=== PATIENT | female | born 1965 | race Two or more races ===

== ENCOUNTER 2019-07-02 01:11 | Inpatient (IN) | payer MEDICARE, MEDICAID ==
[~2019-07-02] VITALS: Ht 170.2 cm; Wt 98.0 kg
--- NOTE | 2019-07-02 01:20 | NUR ---
PT [id number] FROM FRIENDS HOME FOR ALTERED MENTAL STATUS. RESPONDS TO PAINFUL STIMULI. PT ATE DINNER AND SLEPT AT 8PM AND FRIEND NOTICED HEAVY BREATHING. PT LETHARGIC, CONNECTED TO THE WEIGH MACHINE OPERATOR AND POX
--- NOTE | 2019-07-02 01:22 | NUR ---
DR HERNANDEZ AT BEDSIDE
[2019-07-02] MEDS ORDERED: IV NS 0.9% 500 ML BAG IV ONE (02:00)
--- NOTE | 2019-07-02 02:05 | NUR ---
PT TAKEN TO CT
--- NOTE | 2019-07-02 02:15 | NUR ---
PT BACK FROM CT
[2019-07-02 02:27] LABS: BASOPHILS % (AUTO) 0.3 % (0.0-2.0); EOSINOPHILS % (AUTO) 2.2 % (0.0-6.0); HEMATOCRIT 36 % (33-45); HEMOGLOBIN 11.9 g/dL (11.5-14.8); LYMPHOCYTES # (AUTO) 1.6 /CMM (0.8-4.8); LYMPHOCYTES % (AUTO) 14.7 % (20.0-44.0); MEAN CORPUSCULAR HGB CONC 33 g/dl (31.0-36.0); MEAN CORPUSCULAR VOLUME 91 fL (82-100); MONOCYTES # (AUTO) 0.8 /CMM (0.1-1.30); MONOCYTES % (AUTO) 6.9 % (2.0-12.0); NEUTROPHILS # (AUTO) 8.4 /CMM (1.8-8.9); NEUTROPHILS % (AUTO) 75.9 % (43.0-81.0); PLATELET COUNT (AUTO) 194 /CMM (150-450); WHITE BLOOD COUNT (AUTO) 11.1 K/uL (4.3-11.0)
--- NOTE | 2019-07-02 02:33 | NUR ---
URINE COLLECTED AND SENT TO LAB
--- NOTE | 2019-07-02 02:34 | NUR ---
DR HERNANDEZ AT BEDSIDE
[2019-07-02 02:38] LABS: SERUM AMMONIA 19 umol/L (11-32)
[2019-07-02 02:41] LABS: APPEARANCE,URINE CLEAR (CLEAR); BILIRUBIN,URINE NEGATIVE (NEGATIVE); BLOOD, URINE SMALL Ery/uL (NEGATIVE); COLOR,URINE YELLOW (YELLOW); KETONES,URINE NEGATIVE (NEGATIVE); LEUKOCYTE ESTERASE ,URINE NEGATIVE (NEGATIVE); NITRITE, URINE NEGATIVE (NEGATIVE); PROTEIN,URINE 30 mg/dl (NEGATIVE); UGLUCOSE NEGATIVE (NEGATIVE); UROBILINOGEN,URINE 0.2 EU/dL (0.2)
--- NOTE | 2019-07-02 02:48 | NUR ---
ARTI [phone] FRIEND
[2019-07-02 02:51] LABS: CALCIUM, SERUM 8.5 mg/dL (8.5-10.1); CARBON DIOXIDE 26 mmol/L (21-32); CHLORIDE 95 mmol/L (98-107); CREATININE 1.9 mg/dL (0.6-1.3); GLUCOSE 67 mg/dL (74-106); POTASSIUM 3.7 mmol/L (3.5-5.1); SODIUM SERUM 131 mmol/L (136-145); UREA NITROGEN, BLOOD 35 mg/dL (7-18)
[2019-07-02 02:56] LABS: BACTERIA,URINE Moderate /HPF (None Seen); RBC,URINE 21-50 /HPF (0-2); SQUAMOUS EPITHELIAL CELL,UR Few /HPF (None Seen)
[2019-07-02 02:59] LABS: ALANINE AMINOTRANSFERASE 47 U/L (12-78); ALBUMIN 3.3 g/dL (3.4-5.0); ALKALINE PHOSPHATASE 59 U/L (46-116); ASPARTATE AMINOTRANSFERASE 22 U/L (15-37); BILIRUBIN,DIRECT 0.1 mg/dL (0.0-0.2); BILIRUBIN,TOTAL 0.2 mg/dL (0.2-1.0); TOTAL PROTEIN, SERUM 6.8 g/dL (6.4-8.2)
[2019-07-02 03:00] LABS: ACETAMINOPHEN 0 ug/ml (10-30); ALCOHOL, BLOOD < 3 mg/dL (0-0); SALICYLATE 1.1 mg/dL (2.8-20.0)
[2019-07-02 03:22] LABS: THYROID STIMULATING HORMONE 3.376 uIU/mL (0.358-3.74)
--- NOTE | 2019-07-02 04:00 | NUR ---
RT CALLED FOR EVAL.
--- NOTE | 2019-07-02 04:30 | NUR ---
DR HERNANDEZ AT BEDSIDE
[2019-07-02 05:16] LABS: DIGOXIN 1.25 ng/mL (0.90-2.00)
[2019-07-02] MEDS ORDERED: IV NS 0.9% 1,000 ML IV PRN (05:35)
[2019-07-02] MEDS ORDERED: MAG HYDROX/AL HYDROX/SIMETH 30 ML UDC PO PRN (06:00)
[2019-07-02] MEDS ORDERED: MAGNESIUM HYDROXIDE 30 ML UDC PO PRN (06:00)
[2019-07-02] MEDS ORDERED: Z GUARD REMEDY 2 OZ OINT TP PRN (06:00)
[2019-07-02] MEDS ORDERED: ACETAMINOPHEN 650 MG/SUPP.RECT RC PRN (06:00)
[2019-07-02] MEDS ORDERED: ONDANSETRON HCL/PF 4 MG/2 ML VIAL IVP PRN (06:00)
[2019-07-02 06:12] LABS: ABG BASE EXCESS -5.4 mmol/L; ABG OXYGEN SATURATION 89.9 % (92.0-98.5); ABG PCO2 47.1 mmHg (35.0-45.0); ABG PH 7.276 (7.350-7.450); ABG PO2 59.7 mmHg (75.0-100.0); AaDO2 113.4 mmHg; COHb 0.7 % (0.5-1.5); MetHb 0.4 % (0.0-1.5); O2Hb 88.9 % (94.0-97.0); SITE, ABG Left Radial; VENT MODE, BG nasal cannula
--- NOTE | 2019-07-02 07:16 | NUR ---
REPORT GIVEN TO GERSON BRIGGS
--- NOTE | 2019-07-02 07:26 | NUR ---
ASSUME PT CARE. SLEEPING, ON MONITOR. ON SEIZURE PRECAUTION. STABLE VITALS.
[2019-07-02 08:00] VITALS: BP 142/91
--- NOTE | 2019-07-02 08:15 | NUR ---
ECHOMETER ENGINEER NOTE PATIENT ADMIT FROM ER BY HELEN. RESPONSIVE TO PAINFUL STIMULI AND DOES NOT FOLLOW COMMMANDS. PATIENT IS ATTEMPTING TO PULL AT TUBES AND STAND UP. IS VERY CONFUSED AND RN WILL REQUEST RESTRAIN FOR HER SAFETY. IV LFT UPPER CHEST WALL PERIPHERAL IV #18 PATENT AND FLUSHING. BED IN LOW POSITION AND ALL NEEDS MET AT THIS TIME. MEDICATION RECONCILIATON DONE AND MD AWARE PATIENT ON UNIT.
[2019-07-02] MEDS ORDERED: ONDA4TAB5 PO (09:19)
[2019-07-02] MEDS ORDERED: FOLI0.8T23 PO (09:19)
[2019-07-02] MEDS ORDERED: DULO60CA45 PO (09:19)
[2019-07-02] MEDS ORDERED: PANT40TA2 PO (09:19)
[2019-07-02] MEDS ORDERED: ATOR40TA PO (09:19)
[2019-07-02] MEDS ORDERED: SULF1TAB48 PO (09:19)
[2019-07-02] MEDS ORDERED: METO50TA7 PO (09:19)
[2019-07-02] MEDS ORDERED: APIX5TAB PO (09:19)
[2019-07-02] MEDS ORDERED: ISOS30TA6 PO (09:19)
[2019-07-02] MEDS ORDERED: GABA-534 PO (09:19)
[2019-07-02] MEDS ORDERED: PRED2.5T PO (09:19)
[2019-07-02] MEDS ORDERED: MECL-159 PO (09:19)
[2019-07-02] MEDS ORDERED: OLAN20TA3 PO (09:19)
[2019-07-02] MEDS ORDERED: DIGO125T PO (09:19)
[2019-07-02] MEDS ORDERED: CLOP75TA15 PO (09:19)
[2019-07-02] MEDS ORDERED: LEVE250T2 PO (09:19)
[2019-07-02] MEDS ORDERED: TACR1CAP PO (09:19)
[2019-07-02] MEDS ORDERED: DILT180C93 PO (09:19)
[2019-07-02] MEDS ORDERED: MYCO250C PO (09:19)
[2019-07-02] MEDS ORDERED: CALC-7 PO (09:19)
[2019-07-02] MEDS ORDERED: CEPH500C2 PO (09:19)
--- NOTE | 2019-07-02 13:30 | NUR ---
RN NOTE CONSULT RN SPOKE WITH PRIMARY MD REGARDING MEDICATION RECON AND PLAN OF CARE. MD WANTS PATIENT TO REMAIN NPO AND DO NOT ADMINISTER MEDICATION PO OR NG DUE TO ALTERED LEVEL OF CONSCIOUSNESS. WILL CONSULT WITH NEUROLOGY FOR HISTORY OF SEIZURE AND STATUS CHANGE. PATIENT PLACED ON RESTRAINTS FOR SAFETY VERY CONFUSED AND UNABLE TO BE SAFE PULLIING AT TUBES NEEDS OXYGEN AND IVS.
--- NOTE | 2019-07-02 14:51 | NUR ---
RN NOTE FAMILY / AT BEDSIDE. AWARE OF TREATMENT PLAN. COOPERATIVE AND IFORMED RN PATIENT ALSO HAS HISTORY OF LUPUS AND SCHIZOPRHENIA. WILL ADD TO ASSESSMENT
[2019-07-02 16:00] VITALS: BP_SYST 108; BP_SYST 155; BP_DIAS 40; BP_DIAS 80
[2019-07-02] MEDS: IV D5/0.45 NACL 1,000 ML IV PRN (16:46)
[2019-07-02] MEDS ORDERED: hydrALAZINE HCL IV 20 MG VIAL IV PRN (17:00)
[2019-07-02] MEDS ORDERED: ISOSORBIDE MONONITRATE (30MG) 30 MG TAB.SR.24H PO SCH (18:09)
[2019-07-02] MEDS: METOPROLOL SUCCINATE 50 MG TAB.SR.24H PO SCH (18:09)
[2019-07-02] MEDS: DIGOXIN 0.125 MG TABLET PO SCH (18:11)
[2019-07-02] MEDS: DILTIAZEM HCL CD 180 MG PO SCH (18:19)
[2019-07-02] MEDS: CLOPIDOGREL BISULFATE 75 MG TABLET PO SCH (18:19)
[2019-07-02] MEDS: APIXABAN 5 MG TABLET PO SCH (18:20)
[2019-07-02] MEDS: predniSONE 5 MG TABLET PO SCH (18:21)
[2019-07-02] MEDS: LEVETIRACETAM (250 MG) 250 MG TABLET PO SCH (18:24)
[2019-07-02] MEDS ORDERED: ONDANSETRON 4 MG TAB.RAPDIS PO PRN (18:30)
--- NOTE | 2019-07-02 18:33 | NUR ---
RN NOTE ALLERGIES PATIENT IS CONFUSED MOST OF THE TIME HOWEVER MORE ALERT THAN ADMISSION. RN ASKED PATIENT IF SHE HAD ALLEGIES. PATIENT VERBALIZEED IMDUR, COMPAZINE AND PROPOFAL.
--- NOTE | 2019-07-02 18:34 | NUR ---
RN NOTE NON ADMIN MEDS NO DIGOXIN LEVEL DRAWN FOR PATIENT AT THIS TIME. RN TO HOLD DIGOXIN UNTIL DIG LEVEL IS DRAWN. RN HELD METROPROLOL DUE TO SUDDEN CHANGE IN PATIENTS PRESSURE BACK TO NORMAL RANGE, DECREASED FROM 184 / 84 TO 124/84 HEART RATE 136. RN GAVE CARDIZEM PER MD ORDER .
[2019-07-02] MEDS ORDERED: LORAZEPAM INJ 2 MG/ML VIAL IV PRN (19:00)
--- NOTE | 2019-07-02 19:30 | NUR ---
RN OPENING RECEIVED PATIENT A/O X2. PATIENT WAS ABLE TO STATE HER NAME BUT UNABLE TO STATE WHERE SHE IS. PATIENT WAS ON 3L OF O2 WITH NO SIGN OF ANY SOB. PATIENT ON THE MONITOR SHOWS AFIB CONTROLLED. HAS A UPPER EST #18g IV ACCESS PATENT. ALL SAFETY PRECAUTIONS HAVE BEEN APPLIED. WILL CONTINUE TO MONITOR.
[2019-07-02 20:00] VITALS: BP 126/82
[2019-07-02] MEDS: TOPIRAMATE 25 MG TABLET PO SCH (20:53)
[2019-07-02] MEDS: TACROLIMUS ANHYDROUS 1 MG CAPSULE PO SCH (20:53)
[2019-07-02] MEDS: GABAPENTIN 300 MG CAPSULE PO SCH (23:11)
[2019-07-02] MEDS: ATORVASTATIN 40 MG TABLET PO SCH (23:11)
[2019-07-03] VITALS (15 sets, daily range): BP systolic 98–143; BP diastolic 57–86
[2019-07-03] MEDS ORDERED: DEXTROSE 50%-WATER 50 ML DISP.SYRIN IV PRN (00:30)
[2019-07-03] MEDS: PANTOPRAZOLE 40 MG TABLET.DR PO SCH (07:30)
--- NOTE | 2019-07-03 07:30 | NUR ---
RN INITIAL NOTE RECEIVED PATIENT FROM NOC SHIFT RN FOR VAL RN.
--- NOTE | 2019-07-03 07:56 | NUR ---
RN CLOSING PATIENT IN BED. ENDORSED TO RN SHIFT THAT PATIENT IS DIFFICULT TO AROUSE SINCE FIRST DYER. PATIENT ON MONITOR SHOWING AFIB CONTOLLED. BED ALARM ON. ENDORSED CARE TO NURSE FOR MURALI.
--- NOTE | 2019-07-03 08:00 | NUR ---
RN NOTE PATIENT IN BED, WAS ON DEEP SLEEP. NOC SHIFT RN CHECKED BS BEFORE SHIFT ENDS AT 164. PATIENT WAS VERY LETHARGIC. WAS GIVEN PAIN STIMULI, NO REACTION. SET UP A SUCTION MACHINE AT BEDSIDE, TRIED TO SUCTION PATIENT STARTED TO COUGH BUT GOES BACK TO SLEEP. ORDERED STAT ABG, RT AT BEDSIDE. PATIENT SATURATING 91% ON 2L NC. CN AT BEDSIDE. MD MADE AWARE, ORDERED TO TRANSFER PATIENT [facility] STATUS. WAITING FOR ABG RESULTS.
[2019-07-03 08:24] LABS: ABG BASE EXCESS -0.3 mmol/L; ABG OXYGEN SATURATION 88.8 % (92.0-98.5); ABG PCO2 52.8 mmHg (35.0-45.0); ABG PH 7.318 (7.350-7.450); ABG PO2 58.1 mmHg (75.0-100.0); AaDO2 79.2 mmHg; COHb 0.8 % (0.5-1.5); MetHb 0.3 % (0.0-1.5); O2Hb 87.8 % (94.0-97.0); SITE, ABG Right Brachial; VENT MODE, BG NASAL CANNULA
--- NOTE | 2019-07-03 08:30 | NUR ---
RN NOTE ABG RESULTED, PER MD ORDER BIPAP 27/07. RT AT BEDSIDE. PATIENT STILL ON DEEP SLEEP. WILL CONTINUE TO MONITOR PATIENT WILL BE UNDER MY CARE TODAY. AND BE TRANSFERRED TO GERSON YAN WHEN SHE COMES IN
--- NOTE | 2019-07-03 08:45 | NUR ---
0845 pt. placed into bipap per md order due to low pao2 and high pco2 on ABG's. bipap parameters below as order: ipap 15 epap 5 rate 12 fio2 50% Addendum: 07/03/19 at 0942 by ANURADHA LUGO RT Amended: Links added.
[2019-07-03] MEDS: APIXABAN 5 MG TABLET PO SCH ×2 (09:00→16:59)
[2019-07-03] MEDS: TOPIRAMATE 25 MG TABLET PO SCH ×2 (09:00→20:37)
[2019-07-03] MEDS: DILTIAZEM HCL CD 180 MG PO SCH (09:00)
[2019-07-03] MEDS: predniSONE 5 MG TABLET PO SCH (09:00)
[2019-07-03] MEDS: TACROLIMUS ANHYDROUS 1 MG CAPSULE PO SCH (09:00)
[2019-07-03] MEDS: DULOXETINE HCL 30 MG CAPSULE.DR PO SCH ×2 (09:00→16:59)
[2019-07-03] MEDS: CLOPIDOGREL BISULFATE 75 MG TABLET PO SCH (09:00)
[2019-07-03] MEDS: DIGOXIN 0.125 MG TABLET PO SCH (09:00)
[2019-07-03] MEDS: METOPROLOL SUCCINATE 50 MG TAB.SR.24H PO SCH (09:00)
[2019-07-03] MEDS: LEVETIRACETAM (250 MG) 250 MG TABLET PO SCH ×2 (09:00→20:36)
[2019-07-03] MEDS: BLOOD SUGAR DIAGNOSTIC 1 EACH STRIP VI SCH ×4 (09:30→22:32)
--- NOTE | 2019-07-03 09:30 | NUR ---
WOUND CARE CONSULT: UNABLE TO SEE PT FOR SKIN ASSESSMENT DUE TO PT UNSTABLE AT THIS TIME. PER ADMISSION PHOTO DOCUMENTATION, DEEP TISSUE INJURY NOTED IN PHOTO. RECOMMENDATIONS MADE FOR SKIN PROTECTION AND WOUND CARE BASED ON PHOTO/NURSING DOCUMENTATION. RECOMMEND FIRST STEP LOW AIRLOSS MATTRESS. DISCUSSED RECOMMENDATIONS WITH NURSING STAFF. CURRENT ROSA ELENA SCORE IS 12. MD IN AGREEMENT WITH PLAN OF CARE. Addendum: 07/03/19 at 0935 by KULDIP JUNG WNDNU CORRECTION: PT ON AUGUSTINE ISOFLEX LOW AIRLOSS BED. NO NEED FOR FIRST STEP OVERLAY AT THIS TIME.
--- NOTE | 2019-07-03 09:34 | NUR ---
RN NOTE ALL PO MEDS NOT GIVEN. PATIENT VERY LETHARGIC, ON BIPAP. WILL TRANSFER TO ICU PER DR MYRICK'S ORDER. INSULIN NOT GIVEN, PATIENT NOT EATING. BS AT 164. WOUND CARE NURSE AT BEDSIDE. ORDERED WOUND CARE PLAN. AND PATIENT IS ON ISOFLEX BED ALREADY.. WAITING FOR ICU BED
--- NOTE | 2019-07-03 10:30 | NUR ---
RN NOTE PATIENT WAS TRANSFERRED TO ICU VIA ACLS. ON HIGH FLOW O2 AND CONNECTED BACK TO BIPAP IN ICU. REPORT GIVEN TO GERSON JONES AT BEDSIDE.
[2019-07-03] MEDS: IV D5/0.45 NACL 1,000 ML IV PRN (10:32)
--- NOTE | 2019-07-03 10:45 | NUR ---
RN NOTES RECEIVED REPORT FROM SULEMAN NIETO FOR MURALI. RECEIVED PT IN BED WITH CONTINUOUS BIPAP. SHE IS CURRENTLY NON-RESPONSIVE TO VERBAL STIMULI BUT MOVES TO LOCALIZED PAIN. WILL CONTINUE TO MONITOR FOR ANY CHANGES.
[2019-07-03 10:50] LABS: ABG BASE EXCESS -0.6 mmol/L; ABG OXYGEN SATURATION 95.5 % (92.0-98.5); ABG PCO2 43.5 mmHg (35.0-45.0); ABG PH 7.373 (7.350-7.450); ABG PO2 83.9 mmHg (75.0-100.0); AaDO2 223.7 mmHg; COHb 0.5 % (0.5-1.5); MetHb 0.5 % (0.0-1.5); O2Hb 94.5 % (94.0-97.0); PEEP,BG 5 cm H2O; SITE, ABG Left Radial; VENT MODE, BG ST 15/5
--- NOTE | 2019-07-03 11:00 | NUR ---
RT RECEVIED PT ON BIPAP TRANSFER FROM [facility]. PT PLACED ON BIPAP DUE TO ALOC. ABG WAS OBTAINED AND RESULTS WERE WITHIN NORMAL LIMITS. RESULTS SHOWN TO RN AND AWARE. PT TOLERATING SETTINGS WELL. NO SOB OR RESP DISTRESS NOTED AT THIS TIME. WILL CONTINUE TO MONITOR.
[2019-07-03] MEDS: IPRATROPIUM NEB FS 0.5 MG/2.5 ML AMPUL.NEB NEB SCH ×4 (11:07→23:49)
[2019-07-03] MEDS: ALBUTEROL HALF STRENGTH 1.25 MG/3 ML VIAL.NEB NEB SCH ×4 (11:07→23:49)
[2019-07-03] MEDS: LEVOFLOXACIN 500 MG /D5W 100ML 500 MG in PREMIX 1 EA IV SCH (11:48)
--- NOTE | 2019-07-03 11:48 | NUR ---
SPOKE WITH DR. SOMMERS, PT IS NOW NPO
--- NOTE | 2019-07-03 11:52 | NUR ---
WOUND CARE: PT SEEN FOR SKIN ASSESSMENT AND NOTED TO HAVE INTACT DEEP TISSUE INJURY TO SACRUM PRESENT ON ADMISSION. RECOMMENDATIONS MADE FOR SKIN PROTECTION AND WOUND CARE. DISCUSSED WITH NURSING STAFF. PT ON [facility] AIR[facility] BED. WILL SEE PRN. GUERRERO IN AGREEMENT WITH PLAN OF CARE. Addendum: 07/03/19 at 1153 by KULDIP JUNG WNDNU Amended: Links added.
[2019-07-03 12:51] LABS: BASOPHILS % (AUTO) 0.3 % (0.0-2.0); HEMATOCRIT 34 % (33-45); HEMOGLOBIN 11.4 g/dL (11.5-14.8); LYMPHOCYTES # (AUTO) 1.7 /CMM (0.8-4.8); LYMPHOCYTES % (AUTO) 17.5 % (20.0-44.0); MEAN CORPUSCULAR HGB CONC 34 g/dl (31.0-36.0); MEAN CORPUSCULAR VOLUME 90 fL (82-100); MONOCYTES # (AUTO) 0.8 /CMM (0.1-1.30); MONOCYTES % (AUTO) 8.5 % (2.0-12.0); NEUTROPHILS # (AUTO) 6.5 /CMM (1.8-8.9); NEUTROPHILS % (AUTO) 67.7 % (43.0-81.0); PLATELET COUNT (AUTO) 170 /CMM (150-450); RED BLOOD CELL COUNT(AUTO) 3.77 MIL/uL (4.0-5.2); WHITE BLOOD COUNT (AUTO) 9.6 K/uL (4.3-11.0)
[2019-07-03 13:04] LABS: CREATININE 1.6 mg/dL (0.6-1.3); MAGNESIUM 1.8 mg/dL (1.8-2.4); PHOSPHORUS 3.1 mg/dL (2.5-4.9); POTASSIUM 3.9 mmol/L (3.5-5.1)
[2019-07-03 14:48] LABS: THYROID STIMULATING HORMONE 1.33 uIU/mL (0.358-3.74)
[2019-07-03] MEDS: *INSULIN REGULAR(HUMULIN R)HUM 100 UNIT/ML VIAL SQ PRN ×2 (18:02→22:37)
--- NOTE | 2019-07-03 18:03 | NUR ---
RN NOTES PT IS STILL UNRESPONSIVE TO VERBAL STIMULI. PT WAKES UP SLIGHTLY TO STERNAL RUB AND LIGHT PAIN BUT BECOMES UNRESPONSIVE SHORTLY AFTER. SHE IS TOLERATING BIPAP WELL. NO S.SX OF RESP DISTRESS OR SOB. VSS. 1700 MEDICATIONS UNABLE TO ADMIN DUE TO NPO DIAGNOSIS, WILL CONTINUE TO MONITOR FOR ANY CHANGES.
--- NOTE | 2019-07-03 19:14 | NUR ---
RN CLOSING NOTES PATIENT IS RESTING IN BED COMFORTABLY WITH CONTINUOUS BIPAP. SHE IS SLOWLY BECOMING MORE RESPONSIVE WHEN INTRODUCED TO LIGHT PAIN VIA STERNAL RUB. PT DID NOT REQUIRE THE USE OF SOFT WRIST RESTRAINTS, SHE FOLLOWS COMMANDS WHEN ALERT. CHEST RISES AND FALLS EVENLY. PT NEEDS HAVE BEEN MET, VITAL SIGNS ARE STABLE, NO ACUTE CHANGES OCCURRED THROUGHOUT THE SHIFT. SAFETY MEASURES HAVE BEEN IMPLEMENTED, CALL LIGHT IS WITHIN REACH, BED IS IN LOWEST AND LOCKED POSITION, SIDE RAILS UP X3, PT HAS BEEN ENDORSED TO NIGHTSHIFT RN FOR CONTINUITY OF CARE.
--- NOTE | 2019-07-03 20:00 | NUR ---
[employer] school agriculture teacher notes received pts in bed on bipap machine tolerating well sating 98-99%,afib with occasional pvc noted , no sob no distress noted ,v/s stable afebrile pts is awake more alert , no complain of pain . with left upper arm midline intact and patent , ivf of d5 1/2 ns at 75cc/hr infusing well, all needs attended too , call light with in reach , all needs attended too kept pts clean dry and comfortable.
[2019-07-03] MEDS: TACROLIMUS ANHYDROUS 0.5 MG CAPSULE PO SCH (20:37)
--- NOTE | 2019-07-03 20:45 | NUR ---
pts off biap at 845 pm ,pts is awake alert and verbally responsive pt verbalizing wanted to drink and eat she said she is so hungry .swallow screen done ,pts able to swallow water with out any difficulty.spoke to dr diez with [facility] for regular diet , order noted and carried out , pts offer sandwich able to tolerate with no difficulty , due meds given able to swallow pills .all needs attended too , spoke to her daughter updated with pts current condition.
[2019-07-03] MEDS: GABAPENTIN 300 MG CAPSULE PO SCH (21:01)
[2019-07-03] MEDS: ATORVASTATIN 40 MG TABLET PO SCH (21:01)
[2019-07-03] MEDS ORDERED: ACETAMINOPHEN 325 MG TABLET PO PRN (21:30)
--- NOTE | 2019-07-03 22:00 | NUR ---
agricultural inspector notes blood sugar for 10pm is 142mg/dl 2 units of regular insulin given per sliding scale, pts on po diet.
[2019-07-04] VITALS (16 sets, daily range): BP systolic 104–142; BP diastolic 56–94
[2019-07-04] MEDS: IV D5/0.45 NACL 1,000 ML IV PRN ×2 (01:29→19:57)
[2019-07-04] MEDS ORDERED: ACETAMINOPHEN 325 MG TABLET PO PRN (03:30)
[2019-07-04] MEDS: ALBUTEROL HALF STRENGTH 1.25 MG/3 ML VIAL.NEB NEB SCH ×6 (03:36→23:13)
[2019-07-04] MEDS: IPRATROPIUM NEB FS 0.5 MG/2.5 ML AMPUL.NEB NEB SCH ×6 (03:36→23:13)
[2019-07-04 04:40] LABS: BASOPHILS % (AUTO) 0.4 % (0.0-2.0); EOSINOPHILS % (AUTO) 8.1 % (0.0-6.0); HEMATOCRIT 34 % (33-45); HEMOGLOBIN 11.5 g/dL (11.5-14.8); LYMPHOCYTES # (AUTO) 2.1 /CMM (0.8-4.8); LYMPHOCYTES % (AUTO) 22.8 % (20.0-44.0); MEAN CORPUSCULAR HGB CONC 34 g/dl (31.0-36.0); MEAN CORPUSCULAR VOLUME 91 fL (82-100); MONOCYTES # (AUTO) 0.6 /CMM (0.1-1.30); MONOCYTES % (AUTO) 6.6 % (2.0-12.0); NEUTROPHILS # (AUTO) 5.7 /CMM (1.8-8.9); NEUTROPHILS % (AUTO) 62.1 % (43.0-81.0); PLATELET COUNT (AUTO) 154 /CMM (150-450); RED BLOOD CELL COUNT(AUTO) 3.73 MIL/uL (4.0-5.2); WHITE BLOOD COUNT (AUTO) 9.1 K/uL (4.3-11.0)
[2019-07-04 04:50] LABS: APPEARANCE,URINE CLEAR (CLEAR); BILIRUBIN,URINE NEGATIVE (NEGATIVE); BLOOD, URINE NEGATIVE Ery/uL (NEGATIVE); COLOR,URINE YELLOW (YELLOW); KETONES,URINE NEGATIVE (NEGATIVE); LEUKOCYTE ESTERASE ,URINE SMALL (NEGATIVE); NITRITE, URINE NEGATIVE (NEGATIVE); PROTEIN,URINE 30 mg/dl (NEGATIVE); UGLUCOSE NEGATIVE (NEGATIVE); UROBILINOGEN,URINE 0.2 EU/dL (0.2)
[2019-07-04 05:08] LABS: BACTERIA,URINE Few /HPF (None Seen); RBC,URINE 0-2 /HPF (0-2); SQUAMOUS EPITHELIAL CELL,UR Few /HPF (None Seen); WBC,URINE 51-80 /HPF (0-3)
[2019-07-04 05:10] LABS: THYROID STIMULATING HORMONE 2.032 uIU/mL (0.358-3.74)
[2019-07-04 05:18] LABS: CALCIUM, SERUM 7.9 mg/dL (8.5-10.1); CREATININE 1.5 mg/dL (0.6-1.3); MAGNESIUM 1.6 mg/dL (1.8-2.4); PHOSPHORUS 3.5 mg/dL (2.5-4.9); POTASSIUM 3.6 mmol/L (3.5-5.1)
[2019-07-04 05:37] LABS: EOSINOPHIL,URINE None Seen
[2019-07-04 06:11] LABS: CREATININE, URINE 47.2 MG/DL (30.0-125.0)
--- NOTE | 2019-07-04 06:28 | NUR ---
agricultural equipment salesperson notes. Pts remain on nc at 3litre awake alert x4 able to make needs known, no sob no distress noted,will endorse to rn day shift for continuity of care.
--- NOTE | 2019-07-04 07:00 | NUR ---
AUDIT MACHINE OPERATOR AM NOTE PATIENT ALERT AND ORIENTED X4. PLEASANT AND PARTICIPATING IN CARE. VITALS WNL CONTROLLED AFIB ON MONITOR. PATIENT IS ABLE TO USE BEDSIDE COMMODE AND HAD ONE LARGE FORMED BOWL MOVEMENT. IV PATENT AND INTACT FLUIDS RUNNING. LABS IMPROVED, MENTAL STATUS IMPROVED FROM ADMISSION. AWAITING NEURO CONSULT AND SWALLOW EVAL. RN ASSESS SWALLOW ABILITY, CAN TOLERATE PILLS LIUIDS AND SOLID FOODS BY HERSELF. NO RISK FOR ASPIRATION.
[2019-07-04] MEDS: CLOPIDOGREL BISULFATE 75 MG TABLET PO SCH (08:00)
[2019-07-04] MEDS: DULOXETINE HCL 30 MG CAPSULE.DR PO SCH ×2 (08:01→17:07)
[2019-07-04] MEDS: METOPROLOL SUCCINATE 50 MG TAB.SR.24H PO SCH (08:01)
[2019-07-04] MEDS: TACROLIMUS ANHYDROUS 0.5 MG CAPSULE PO SCH ×2 (08:01→21:32)
[2019-07-04] MEDS: predniSONE 5 MG TABLET PO SCH (08:01)
[2019-07-04] MEDS: TOPIRAMATE 25 MG TABLET PO SCH ×2 (08:02→21:32)
[2019-07-04] MEDS: DILTIAZEM HCL CD 180 MG PO SCH (08:02)
[2019-07-04] MEDS: APIXABAN 5 MG TABLET PO SCH ×2 (08:05→17:09)
[2019-07-04 08:08] LABS: COMPLEMENT C3, SERUM 117 mg/dL (82-167); COMPLEMENT C4, SERUM 38 mg/dL (14-44)
[2019-07-04] MEDS: BLOOD SUGAR DIAGNOSTIC 1 EACH STRIP VI SCH ×4 (08:20→21:40)
[2019-07-04] MEDS: PANTOPRAZOLE 40 MG TABLET.DR PO SCH (08:20)
[2019-07-04] MEDS: DIGOXIN 0.125 MG TABLET PO SCH (08:33)
[2019-07-04] MEDS: INSULIN REGULAR, HUMAN 100 UNIT/ML 3 ML VIAL SQ PRN ×3 (08:35→18:11)
[2019-07-04 09:07] LABS: *ANA ANTI-CENTROMERE B AB <0.2 AI (0.0-0.9); *ANA ANTI-DNA(DS) AB, QN 1 IU/mL (0-9); *ANA ANTI-JO-1 <0.2 AI (0.0-0.9); *ANA ANTICHROMATIN ANTIBODY <0.2 AI (0.0-0.9); *ANA RNP ANTIBODIES 0.6 AI (0.0-0.9); *ANA SJOGREN'S ANTI-SS-A <0.2 AI (0.0-0.9); *ANA SJOGREN'S ANTI-SS-B <0.2 AI (0.0-0.9); *ANAANTI-SCLERODERMA-70 AB <0.2 AI (0.0-0.9); *ANASMITH AB <0.2 AI (0.0-0.9)
[2019-07-04] MEDS ORDERED: Magnesium 1GM/D5W 100ML PREMIX 100 ML IV SCH (09:25)
[2019-07-04 09:59] LABS: ABG OXYGEN SATURATION 92.4 % (92.0-98.5); ABG PCO2 40.2 mmHg (35.0-45.0); ABG PH 7.406 (7.350-7.450); ABG PO2 63.8 mmHg (75.0-100.0); AaDO2 117.3 mmHg; COHb 0.3 % (0.5-1.5); MetHb 0.3 % (0.0-1.5); O2Hb 91.8 % (94.0-97.0); SITE, ABG Right Radial; VENT MODE, BG NASAL CANNULA
[2019-07-04] MEDS: LEVETIRACETAM (250 MG) 250 MG TABLET PO SCH ×2 (10:48→21:32)
--- NOTE | 2019-07-04 11:40 | NUR ---
ICU TRANSFER TO [facility] RN TRANSFERED PATIENT TO [facility], REPORT GIVEN TO RAJEEV AT BEDSIDE. PATIENT AWAKE AND ALERT X4. EATING WELL. IVS PATENT ABLE TO AMBULATE WITH ASSIST USE BEDSIDE COMMODE. VITALS WNL OXYGEN SATURATION ABOVE 95%. NO SEIXURES NOTED
[2019-07-04] MEDS: LEVOFLOXACIN 500 MG /D5W 100ML 500 MG in PREMIX 1 EA IV SCH (12:19)
[2019-07-04] MEDS: HYDROCODONE/APAP 5/325MG 1 EACH TABLET PO PRN ×2 (13:56→19:58)
--- NOTE | 2019-07-04 19:18 | NUR ---
RN CLOSING NOTES PT DENIES ANY PAIN OR SOB AT PRESENT MOMENT. PT IS A&OX4. PT IS AFIB CONTROLLED ON TELE MONITOR. BED IS LOCKED AND IN LOWEST POSITION WITH CALL LIGHT IN REACH. PT IS ABLE TO AMBULATE TO RESTROOM. PT IS ABLE TO MAKE NEEDS KNOWN. REPORT GIVEN TO MAIL HANDLER RN FOR MURALI.
[2019-07-04] MEDS: GABAPENTIN 300 MG CAPSULE PO SCH (21:32)
[2019-07-04] MEDS: ATORVASTATIN 40 MG TABLET PO SCH (21:32)
[2019-07-04] MEDS: *INSULIN REGULAR(HUMULIN R)HUM 100 UNIT/ML VIAL SQ PRN (21:40)
[2019-07-05] VITALS: BP 111/63
[2019-07-05] MEDS: IPRATROPIUM NEB FS 0.5 MG/2.5 ML AMPUL.NEB NEB SCH ×4 (03:20→15:24)
[2019-07-05] MEDS: ALBUTEROL HALF STRENGTH 1.25 MG/3 ML VIAL.NEB NEB SCH ×4 (03:20→15:23)
[2019-07-05 04:00] VITALS: BP 124/65
--- NOTE | 2019-07-05 07:10 | NUR ---
RN INITIAL NOTE PATIENT AWAKE AND ALERT X4. ON TELE MONITOR, WITH CONTROLLED AFIB AT 82. PATIENT IS AMBULATORY AND HAS BRP. HAS A LEFT UPPER ARM MIDLINE WITH D5 HALF NS AT 75 ML/HR. NO COMPLAINS OF ANY PAIN NOR SOB AT THIS TIME. BED LOCKED AND IN LOWEST POSITION. CALL LIGHT WITHIN REACH. WILL CONTINUE TO MONITOR
[2019-07-05] MEDS: PANTOPRAZOLE 40 MG TABLET.DR PO SCH (07:44)
[2019-07-05] MEDS: INSULIN REGULAR, HUMAN 100 UNIT/ML 3 ML VIAL SQ PRN ×3 (07:47→18:04)
[2019-07-05] MEDS: BLOOD SUGAR DIAGNOSTIC 1 EACH STRIP VI SCH ×2 (07:47→12:07)
[2019-07-05 08:00] VITALS: BP 136/78
[2019-07-05 08:01] LABS: BASOPHILS % (AUTO) 0.3 % (0.0-2.0); EOSINOPHILS % (AUTO) 8.5 % (0.0-6.0); HEMATOCRIT 31 % (33-45); HEMOGLOBIN 10.4 g/dL (11.5-14.8); LYMPHOCYTES # (AUTO) 1.6 /CMM (0.8-4.8); LYMPHOCYTES % (AUTO) 23.5 % (20.0-44.0); MEAN CORPUSCULAR HGB CONC 33 g/dl (31.0-36.0); MEAN CORPUSCULAR VOLUME 90 fL (82-100); MONOCYTES # (AUTO) 0.4 /CMM (0.1-1.30); MONOCYTES % (AUTO) 5.5 % (2.0-12.0); NEUTROPHILS # (AUTO) 4.3 /CMM (1.8-8.9); NEUTROPHILS % (AUTO) 62.2 % (43.0-81.0); PLATELET COUNT (AUTO) 179 /CMM (150-450); RED BLOOD CELL COUNT(AUTO) 3.46 MIL/uL (4.0-5.2); WHITE BLOOD COUNT (AUTO) 6.8 K/uL (4.3-11.0)
[2019-07-05] MEDS: predniSONE 5 MG TABLET PO SCH (08:11)
[2019-07-05] MEDS: TACROLIMUS ANHYDROUS 0.5 MG CAPSULE PO SCH (08:14)
[2019-07-05] MEDS: DILTIAZEM HCL CD 180 MG PO SCH (08:14)
[2019-07-05] MEDS: CLOPIDOGREL BISULFATE 75 MG TABLET PO SCH (08:14)
[2019-07-05] MEDS: DULOXETINE HCL 30 MG CAPSULE.DR PO SCH ×2 (08:14→17:35)
[2019-07-05] MEDS: TOPIRAMATE 25 MG TABLET PO SCH (08:14)
[2019-07-05] MEDS: METOPROLOL SUCCINATE 50 MG TAB.SR.24H PO SCH (08:14)
[2019-07-05] MEDS: LEVETIRACETAM (250 MG) 250 MG TABLET PO SCH (08:15)
[2019-07-05] MEDS: DIGOXIN 0.125 MG TABLET PO SCH (08:15)
[2019-07-05] MEDS: APIXABAN 5 MG TABLET PO SCH ×2 (08:16→17:35)
[2019-07-05] MEDS: HYDROCODONE/APAP 5/325MG 1 EACH TABLET PO PRN (08:36)
[2019-07-05 08:59] LABS: CALCIUM, SERUM 8.1 mg/dL (8.5-10.1); CREATININE 1.4 mg/dL (0.6-1.3); MAGNESIUM 1.8 mg/dL (1.8-2.4); PHOSPHORUS 3.3 mg/dL (2.5-4.9); POTASSIUM 3.6 mmol/L (3.5-5.1)
[2019-07-05] MEDS: IV D5/0.45 NACL 1,000 ML IV PRN (09:31)
--- NOTE | 2019-07-05 11:00 | NUR ---
RN NOTE DR MYRICK AT BEDSIDE. ADVISED PATIENT TO AMBULATE AROUND THE HALLWAY AND TRY NOT TO DEPEND ON O2
[2019-07-05 12:00] VITALS: BP 115/69
[2019-07-05] MEDS: LEVOFLOXACIN 500 MG /D5W 100ML 500 MG in PREMIX 1 EA IV SCH (12:08)
--- NOTE | 2019-07-05 13:30 | NUR ---
RN NOTE PATIENT AMBULATED, ON ROOM AIR. O2 SAT AT 96%
[2019-07-05] MEDS ORDERED: Blood Sugar Diagnostic VI (15:30)
[2019-07-05] MEDS ORDERED: INSU100V28 SQ (15:30)
[2019-07-05] MEDS ORDERED: LEVE250T2 PO (15:30)
[2019-07-05] MEDS ORDERED: LEVO500T2 PO (15:30)
--- NOTE | 2019-07-05 17:25 | NUR ---
RN NOTE REPORT GIVEN TO GERSON BEAL AT [facility]
--- NOTE | 2019-07-05 18:34 | NUR ---
STEREO PLOTTER OPERATOR NOTE PATIENT WAS PICKED UP BY [facility], GOING TO [facility]. NO COMPLAINS OF ANY PAIN NOR SOB. WAS OFF O2. NO SOB NOTED. SATURATING 97% ON RA. BELONGINGS LIST SIGNED. REMOVED IV LINES AND ID BANDS. TELE BOX REMOVED. WOUND PHOTOS TAKEN. PATIENT ALERT AND ORIENTED X4. FAMILY AWARE OF THE TRANSFER
[2019-07-05] MEDS ORDERED: LEVETIRACETAM (250 MG) 250 MG TABLET PO SCH (21:00)
[2019-07-06] MEDS ORDERED: LEVOFLOXACIN (500MG) 500 MG TABLET PO SCH (09:00)
[2019-07-17] MEDS ORDERED: FURO-144 PO (12:52)
== END 2019-07-05 18:30 | DRG 193 ==
LOC: ER 01:17 → TELE1 06:07 → TELE-TD 08:39 → MEDSG1 11:11 → TELE1 16:41 → TELE-TD 07-03 08:41 → ICU 07-03 10:16 → TELE-TD 07-04 11:43
PROC: 05HF33Z Insertion of Infusion Device into Left Cephalic Vein, Percutaneous Approach (ICD-10-PCS; principal; 2019-07-03)
PROC: 05HC33Z Insertion of Infusion Device into Left Basilic Vein, Percutaneous Approach (ICD-10-PCS; 2019-07-03)
PROC: 5A09357 Assistance with Respiratory Ventilation, Less than 24 Consecutive Hours, Continuous Positive Airway Pressure (ICD-10-PCS; 2019-07-03)
DX: J15.9 Unspecified bacterial pneumonia (principal); J96.22 Acute and chronic respiratory failure with hypercapnia; N17.0 Acute kidney failure with tubular necrosis; G93.41 Metabolic encephalopathy; E87.1 Hypo-osmolality and hyponatremia; T86.12 Kidney transplant failure; E11.22 Type 2 diabetes mellitus with diabetic chronic kidney disease; N18.9 Chronic kidney disease, unspecified; I25.10 Atherosclerotic heart disease of native coronary artery without angina pectoris; K21.9 Gastro-esophageal reflux disease without esophagitis; Y83.9 Surgical procedure, unspecified as the cause of abnormal reaction of the patient, or of later complication, without mention of misadventure at the time of the procedure; E66.01 Morbid (severe) obesity due to excess calories; Z68.33 Body mass index [BMI] 33.0-33.9, adult; I48.91 Unspecified atrial fibrillation; K76.0 Fatty (change of) liver, not elsewhere classified; M32.9 Systemic lupus erythematosus, unspecified; I12.9 Hypertensive chronic kidney disease with stage 1 through stage 4 chronic kidney disease, or unspecified chronic kidney disease
CPT/HCPCS: 36410; 36415; 36600; 70450-TC; 71045-TC; 71250-TC; 72125-TC; 76700-TC; 80048-TC; 80061-TC; 80076-TC; 80162-TC; 80177; 80197; 80305; 81000-TC; 82140-TC; 82550-TC; 82570-TC; 82803-TC; 82962-TC; 83735-TC; 84100-TC; 84155-TC; 84300-TC; 84443-TC; 84484-TC; 84702-TC; 85025-TC; 85652-TC; 85730-TC; 86225; 86235; 86706; 86803; 87081-TC; 87086-TC; 87340; 94799-TC; A4216; G0378; G0480; J0360; J1815; J1956; J3475; J3490; J7030; J7040; J7507; J7512; L0172; Q0162

== ENCOUNTER 2019-07-14 19:56 | Inpatient (IN) | payer MEDICARE, MEDICAID ==
[~2019-07-14] VITALS: Ht 170.2 cm; Wt 99.8 kg
[~2019-07-14 19:56] MED LIST: APIX5TAB PO; ATOR40TA PO; Blood Sugar Diagnostic VI; CALC-7 PO; CEPH500C2 PO; CLOP75TA15 PO; DIGO125T PO; DILT180C93 PO; DULO60CA45 PO; FOLI0.8T23 PO; GABA-534 PO; INSU100V28 SQ; ISOS30TA6 PO; LEVE250T2 PO; LEVO500T2 PO; MECL-159 PO; METO50TA7 PO; MYCO250C PO; OLAN20TA3 PO; ONDA4TAB5 PO; PANT40TA2 PO; PRED2.5T PO; SULF1TAB48 PO; TACR1CAP PO
--- NOTE | 2019-07-14 19:56 | NUR ---
C/O SOB, COUGH AND CONGESTION X3 DAYS. O2 SAT 93%ON 4L/NC, pt to bed 5, pt on monitor, vss, nad noted, pending md dial
--- NOTE | 2019-07-14 20:13 | NUR ---
CALLED RT FOR ABG
[2019-07-14 20:27] LABS: BASOPHILS # (AUTO) 0.1 /CMM (0.0-0.2); BASOPHILS % (AUTO) 0.9 % (0.0-2.0); EOSINOPHILS % (AUTO) 7.6 % (0.0-6.0); HEMATOCRIT 35 % (33-45); HEMOGLOBIN 11.5 g/dL (11.5-14.8); LYMPHOCYTES # (AUTO) 0.9 /CMM (0.8-4.8); LYMPHOCYTES % (AUTO) 12.9 % (20.0-44.0); MEAN CORPUSCULAR HGB CONC 33 g/dl (31.0-36.0); MEAN CORPUSCULAR VOLUME 89 fL (82-100); MONOCYTES # (AUTO) 0.4 /CMM (0.1-1.30); MONOCYTES % (AUTO) 5.1 % (2.0-12.0); NEUTROPHILS # (AUTO) 5.3 /CMM (1.8-8.9); NEUTROPHILS % (AUTO) 73.5 % (43.0-81.0); PLATELET COUNT (AUTO) 239 /CMM (150-450); RED BLOOD CELL COUNT(AUTO) 3.91 MIL/uL (4.0-5.2); WHITE BLOOD COUNT (AUTO) 7.2 K/uL (4.3-11.0)
[2019-07-14 20:49] LABS: ABG BASE EXCESS -0.6 mmol/L; ABG OXYGEN SATURATION 92.1 % (92.0-98.5); ABG PCO2 42.7 mmHg (35.0-45.0); ABG PH 7.379 (7.350-7.450); ABG PO2 64.2 mmHg (75.0-100.0); COHb 0.4 % (0.5-1.5); MetHb 0.4 % (0.0-1.5); O2Hb 91.4 % (94.0-97.0); SITE, ABG Left Radial; VENT MODE, BG 4 LNC
[2019-07-14 20:51] LABS: ALANINE AMINOTRANSFERASE 24 U/L (12-78); ALBUMIN 2.8 g/dL (3.4-5.0); ALKALINE PHOSPHATASE 83 U/L (46-116); ASPARTATE AMINOTRANSFERASE 21 U/L (15-37); BILIRUBIN,DIRECT 0.1 mg/dL (0.0-0.2); BILIRUBIN,TOTAL 0.3 mg/dL (0.2-1.0); CALCIUM, SERUM 8.2 mg/dL (8.5-10.1); CARBON DIOXIDE 27 mmol/L (21-32); CHLORIDE 91 mmol/L (98-107); CREATININE 1.8 mg/dL (0.6-1.3); POTASSIUM 4.5 mmol/L (3.5-5.1); SODIUM SERUM 124 mmol/L (136-145); TOTAL PROTEIN, SERUM 6.6 g/dL (6.4-8.2); UREA NITROGEN, BLOOD 20 mg/dL (7-18)
[2019-07-14 20:56] LABS: GLUCOSE 395 mg/dL (74-106)
--- NOTE | 2019-07-14 21:02 | NUR ---
CALLED MISBAH FOR READ
[2019-07-14 21:07] LABS: APPEARANCE,URINE Clear (CLEAR); BILIRUBIN,URINE Negative (NEGATIVE); BLOOD, URINE Negative Ery/uL (NEGATIVE); COLOR,URINE Yellow (YELLOW); KETONES,URINE Negative (NEGATIVE); LEUKOCYTE ESTERASE ,URINE Trace (NEGATIVE); NITRITE, URINE Negative (NEGATIVE); PH,URINE 5.5 (5.0-8.0); PROTEIN,URINE 100 mg/dl (NEGATIVE); UGLUCOSE 500 MG/DL mg/dL (NEGATIVE); UROBILINOGEN,URINE 0.2 EU/dL (0.2)
[2019-07-14 21:40] LABS: BACTERIA,URINE 2+ /HPF (None Seen)
[2019-07-14] MEDS: INSULIN LISPRO/ASPART 100 UNIT/ML CARTRIDGE SQ SCH (21:47)
[2019-07-14] MEDS ORDERED: INSULIN REGULAR, HUMAN 100 UNIT/ML 10 ML VIAL ONE (21:48)
--- NOTE | 2019-07-14 21:54 | NUR ---
CALLED FOR TELE BED
--- NOTE | 2019-07-14 21:57 | NUR ---
RECIEVED BED 323-2 T
[2019-07-14] MEDS ORDERED: FUROSEMIDE 40 MG/4 ML VIAL IV ONE (22:00)
[2019-07-14] MEDS ORDERED: FUROSEMIDE 40 MG/4 ML VIAL ONE (22:08)
--- NOTE | 2019-07-14 22:16 | NUR ---
report given to jeronimo trevino for héctor pt will be transported to 3rd floor
[2019-07-14 22:20] VITALS: BP 127/84
--- NOTE | 2019-07-14 22:30 | NUR ---
pt transported to 3rd floor
[2019-07-14] MEDS ORDERED: ONDANSETRON HCL/PF 4 MG/2 ML VIAL IVP PRN (23:00)
[2019-07-14] MEDS ORDERED: ALBUTEROL FS 2.5 MG/3 ML VIAL.NEB NEB PRN (23:00)
[2019-07-14] MEDS ORDERED: DEXTROSE 50%-WATER 50 ML DISP.SYRIN IV PRN (23:00)
[2019-07-14] MEDS ORDERED: ACETAMINOPHEN 325 MG TABLET PO PRN (23:00)
[2019-07-15] VITALS (14 sets, daily range): BP systolic 99–150; BP diastolic 45–88
[2019-07-15] MEDS: MORPHINE SULFATE INJ 2 MG/ML DISP.SYRIN IV PRN ×4 (00:06→20:02)
--- NOTE | 2019-07-15 01:40 | NUR ---
ZOOLOGY TEACHERPLASTIC HOSPITAL PRODUCTS ASSEMBLER NOTES PATIENT RECEIVED ACCOMPANIED BY ER STAFF VIA [employer]. ON 4L OF O2 VIA NC, WITH BREATHING EVEN AND UNLABORED, NO SOB NOTED. A/O X 2-3 ABLE TO FOLLOW COMMANDS. TELE MONITORS PLACED. IV LOCATED ON R SHOULDER #20. ALL BELONGINGS ACCOUNTED FOR. ORIENTED TO ROOM AND STAFF. ID BAND PLACED. WILL CONTINUE TO MONITOR.
[2019-07-15] MEDS: BLOOD SUGAR DIAGNOSTIC 1 EACH STRIP IN SCH ×4 (06:47→21:35)
[2019-07-15] MEDS: INSULIN REGULAR, HUMAN 100 UNIT/ML 3 ML VIAL SQ PRN ×3 (06:52→17:28)
--- NOTE | 2019-07-15 06:59 | NUR ---
MS RN CLOSING NOTES PATIENT CURRENTLY RESTING IN BED A/O X2-3. ON 4L OF O2 VIA NC BREATHING EVEN AND UNLABORED, NO SOB NOTED. NO SIGNS OF ACUTE DISTRESS. NO COMPLAINTS OR PAIN OR DISCOMFORT. IV LOCATED ON R SHOULDER #20 SL. TELE SHOWING A FiB CONTROLLED 78.. PATIENT WAS KEPT CLEAN AND DRY THROUGHOUT THE NIGHT- ALL NEEDS ATTENDED TO. SAFETY PRECAUTION IN PLACE WITH BED IN LOWEST POSITION, CALL LIGHT WITHIN REACH, BREAKS ON, AND SIDE RAILS UP X 2. SEIZURE PRECAUTIONS IN PLACE WELL. WILL ENDORSE TO ONCOMING SHIFT ABOUT MURALI.
[2019-07-15] MEDS: INSULIN LISPRO/ASPART 100 UNIT/ML CARTRIDGE SQ SCH ×3 (07:30→17:27)
--- NOTE | 2019-07-15 07:55 | NUR ---
MS RN NOTES RECEIVED PATIENT IN BED A/O X 2. PATIENT ON OXYGEN THERAPY OF 4 LMP. NO SIGNS OF DISTRESS AT THIS MOMENT. PATIENT STATED ABOUT PAIN IN HER LEGS. PER TAX DIRECTOR NURSE SHE HAS PRN MORPHINE. RIGHT CHEST IV GAUGE #20 PRESENT AND INTACT FLUSHING WELL. SAFETY PRECAUTIONS IN PLACE; BED IN LOW POSITION AND LOCKED, RAILS UP X 2, CALL LIGHT WITHIN REACH. WILL CONTINUE TO MONITOR PATIENT.
[2019-07-15 08:20] LABS: BASOPHILS % (AUTO) 0.7 % (0.0-2.0); EOSINOPHILS % (AUTO) 9.7 % (0.0-6.0); HEMATOCRIT 37 % (33-45); HEMOGLOBIN 12.1 g/dL (11.5-14.8); LYMPHOCYTES # (AUTO) 1.4 /CMM (0.8-4.8); LYMPHOCYTES % (AUTO) 22.4 % (20.0-44.0); MEAN CORPUSCULAR HGB CONC 33 g/dl (31.0-36.0); MEAN CORPUSCULAR VOLUME 88 fL (82-100); MONOCYTES # (AUTO) 0.5 /CMM (0.1-1.30); MONOCYTES % (AUTO) 8.4 % (2.0-12.0); NEUTROPHILS # (AUTO) 3.6 /CMM (1.8-8.9); NEUTROPHILS % (AUTO) 58.8 % (43.0-81.0); PLATELET COUNT (AUTO) 238 /CMM (150-450); RED BLOOD CELL COUNT(AUTO) 4.18 MIL/uL (4.0-5.2); WHITE BLOOD COUNT (AUTO) 6.1 K/uL (4.3-11.0)
[2019-07-15 08:38] LABS: ALANINE AMINOTRANSFERASE 20 U/L (12-78); ALBUMIN 2.8 g/dL (3.4-5.0); ALKALINE PHOSPHATASE 76 U/L (46-116); ASPARTATE AMINOTRANSFERASE 16 U/L (15-37); BILIRUBIN,TOTAL 0.4 mg/dL (0.2-1.0); CALCIUM, SERUM 8.1 mg/dL (8.5-10.1); CARBON DIOXIDE 28 mmol/L (21-32); CHLORIDE 94 mmol/L (98-107); CREATININE 1.6 mg/dL (0.6-1.3); GLUCOSE 212 mg/dL (74-106); MAGNESIUM 1.3 mg/dL (1.8-2.4); PHOSPHORUS 3.5 mg/dL (2.5-4.9); POTASSIUM 3.8 mmol/L (3.5-5.1); SODIUM SERUM 129 mmol/L (136-145); TOTAL PROTEIN, SERUM 6.6 g/dL (6.4-8.2); UREA NITROGEN, BLOOD 16 mg/dL (7-18)
[2019-07-15 08:41] LABS: IRON, SERUM 27 ug/dl (50-175); TOTAL IRON BINDING CAPACITY 261 ug/dl (250-450)
--- NOTE | 2019-07-15 08:45 | NUR ---
MS RN NOTES PATIENT IS HARD TO AROUSE. SHE OPENS HER EYES AND GOES BACK TO SLEEP STATING SHE DID NOT SLEEP WELL AT NIGHT. SATURATING AT 96 PERCENT. SHE DID NOT EAT HER BREAKFAST YET. MD NOTIFIED AND SAW HER AT BEDSIDE.
[2019-07-15 08:52] LABS: CHOLESTEROL 79 mg/dL (<200); HDL CHOLESTEROL 29 mg/dL (40-60); LDL 33 mg/dL (0-99); THYROID STIMULATING HORMONE 4.807 uIU/mL (0.358-3.74); TRIGLYCERIDES 153 mg/dL (30-150)
[2019-07-15] MEDS ORDERED: FUROSEMIDE 20 MG/2 ML VIAL IV SCH (09:00)
[2019-07-15] MEDS ORDERED: LEVETIRACETAM (250 MG) 250 MG TABLET PO SCH (09:00)
[2019-07-15] MEDS ORDERED: FUROSEMIDE 40 MG/4 ML VIAL IV SCH (09:00)
[2019-07-15 09:58] LABS: DIGOXIN 1.48 ng/mL (0.90-2.00)
[2019-07-15] MEDS: predniSONE 5 MG TABLET PO SCH (10:25)
[2019-07-15] MEDS: LEVETIRACETAM (250 MG) 250 MG TABLET PO SCH ×2 (10:26→21:34)
[2019-07-15] MEDS: PANTOPRAZOLE 40 MG TABLET.DR PO SCH (10:26)
[2019-07-15] MEDS: TACROLIMUS ANHYDROUS 0.5 MG CAPSULE PO SCH ×2 (10:26→21:34)
[2019-07-15] MEDS: MYCOPHENOLATE MOFETIL 250 MG CAPSULE PO SCH ×2 (10:27→17:25)
[2019-07-15] MEDS: CALCIUM CARB 250MG /VITAMIN D 1 UDTAB PO SCH ×2 (10:27→17:25)
[2019-07-15] MEDS: DILTIAZEM HCL CD 180 MG PO SCH (10:27)
[2019-07-15] MEDS: VIT B CMPLX 3/FA/VIT C/BIOTIN 1 TAB TABLET PO SCH (10:27)
[2019-07-15] MEDS: CLOPIDOGREL BISULFATE 75 MG TABLET PO SCH (10:28)
[2019-07-15] MEDS: METOPROLOL SUCCINATE 50 MG TAB.SR.24H PO SCH (10:28)
[2019-07-15] MEDS: APIXABAN 5 MG TABLET PO SCH ×2 (10:29→17:27)
[2019-07-15] MEDS: CEFTRIAXONE 1 G in IV D5W 50 ML IV SCH (10:30)
[2019-07-15 10:37] LABS: ABG BASE EXCESS 3.1 mmol/L; ABG OXYGEN SATURATION 91.3 % (92.0-98.5); ABG PCO2 60.1 mmHg (35.0-45.0); ABG PH 7.323 (7.350-7.450); ABG PO2 64.4 mmHg (75.0-100.0); AaDO2 122.6 mmHg; COHb 0.4 % (0.5-1.5); MetHb 0.3 % (0.0-1.5); O2Hb 90.7 % (94.0-97.0); SITE, ABG Left Radial; VENT MODE, BG 4LNC
--- NOTE | 2019-07-15 10:46 | NUR ---
EDYTA done. Results given to Dr. Reilly.
[2019-07-15] MEDS: ISOSORBIDE MONONITRATE (30MG) 30 MG TAB.SR.24H PO SCH (11:02)
[2019-07-15] MEDS: DULOXETINE HCL 30 MG CAPSULE.DR PO SCH ×2 (11:03→17:25)
[2019-07-15] MEDS: DIGOXIN 0.125 MG TABLET PO SCH (11:04)
--- NOTE | 2019-07-15 11:20 | NUR ---
QUALITY ASSURANCE INSPECTOR INITIAL NOTE RECEIVED PATIENT VIA BED, RECEIVED BEDSIDE REPORT. WITH ONGOING ANTIBIOTIC INFUSION. NO DISTRESS NOTED, ON 4LPM O2 VIA NC, SPO2 95%. SKIN WARM AND DRY TO TOUCH. PATIENT AWAKE AND ALERT. C/O 10/10 BILATERAL LEG PAIN. STATES IT'S NOT NEW. NOTED WITH DELORIS 20G PIV PATENT AND INTACT. WITH C/O SOB WITH EXERTION. ORIENTED TO ROOM AND CALL LIGHT BUTTON. PATIENT VERBALIZED UNDERSTANDING. CALL LIGHT WITHIN EASY REACH. WILL CONTINUE TO MONITOR.
--- NOTE | 2019-07-15 11:35 | NUR ---
MS RN NOTES AGB TEST DONE. PER ABG RESULTS PATIENT TRANSFERRED TO ICU.
[2019-07-15] MEDS: Magnesium 1GM/D5W 100ML PREMIX 100 ML IV SCH ×2 (11:36→13:50)
--- NOTE | 2019-07-15 11:36 | NUR ---
MS RN NOTES PATIENT DID NOT HAVE ANY BREAKFAST ALL DAY. BS OF 205. FAST ACTING INSU;CHERELLE NON-ADMINISTERED UNTIL PATIENT EATS.
--- NOTE | 2019-07-15 13:47 | NUR ---
JOB CAPTAIN NOTE INFORMED DR ANDERSON REGARDING NEW PATIENT TRANSFERRED FROM [facility] WITH ORDERS FOR BIPAP 8PM-8AM AND ABG IN AM. RT MADE AWARE.
[2019-07-15] MEDS: SOD FERRIC GLUC 125 MG in IV NS 0.9% 100 ML IV SCH (15:07)
--- NOTE | 2019-07-15 19:13 | NUR ---
FIRE SPRINKLER INSTALLER NOTE ASSISTED PATIENT TO BEDSIDE COMMODE, PATIENT HAD BOWEL MOVEMENT, STOOL COLLECTED FOR OB. ALL DUE MEDS GIVEN. NO DISTRESS NOTED. ASSISTED PATIENT BACK TO BED, CALL LIGHT KEPT WITHIN EASY REACH. CONTINUITY OF CARE ENDORSED TO PM NURSE.
--- NOTE | 2019-07-15 19:30 | NUR ---
ICU/RN OPENING NOTE RECEIVED PATIENT A/OX4 PATIENT ON 4L OF O2 SATURATING AT 97%. PATIENT SHOWS NO SIGN OF ANY SOB OF DISTRESS AT THE MOMENT. PATIENT HAS A DELORIS #20G AND A RIGHT BASILLIC MIDLINE PATENT AND FLUSHING. PATIENT ON THE MONITOR SHOWING A-FIB CONTROLLED. ALL OTHER VITALS ARE WNL. PATIENT IS AMBULATORY WITH BEDSIDE COMMODE. ALL SAFETY PRECAUTIONS APPLIED. WILL CONTINUE TO MONITOR PATIENT FOR MURALI.
[2019-07-15 20:10] LABS: OCCULT BLOOD STOOL NEGATIVE (NEGATIVE)
--- NOTE | 2019-07-15 22:08 | NUR ---
ICU/RN PATIENT BLOOD SUGAR IS 156. PATIENT REFUSED INSULIN SAYS SHE WILL NOT BE EATING THROUGHOUT NIGHT. EXPLAINED BENEFITS. PATIENT DOES NOT WANT INSULIN FOR 2200
[2019-07-15] MEDS: OLANZAPINE 10 MG TABLET PO SCH (22:27)
[2019-07-16] VITALS (16 sets, daily range): BP systolic 103–183; BP diastolic 51–81
[2019-07-16] MEDS: MORPHINE SULFATE INJ 2 MG/ML DISP.SYRIN IV PRN ×3 (02:02→16:36)
[2019-07-16 04:35] LABS: BASOPHILS % (AUTO) 0.6 % (0.0-2.0); EOSINOPHILS % (AUTO) 7.4 % (0.0-6.0); HEMATOCRIT 32 % (33-45); HEMOGLOBIN 10.6 g/dL (11.5-14.8); LYMPHOCYTES # (AUTO) 1.6 /CMM (0.8-4.8); LYMPHOCYTES % (AUTO) 33.3 % (20.0-44.0); MEAN CORPUSCULAR HGB CONC 34 g/dl (31.0-36.0); MEAN CORPUSCULAR VOLUME 88 fL (82-100); MONOCYTES # (AUTO) 0.5 /CMM (0.1-1.30); MONOCYTES % (AUTO) 9.9 % (2.0-12.0); NEUTROPHILS # (AUTO) 2.3 /CMM (1.8-8.9); NEUTROPHILS % (AUTO) 48.8 % (43.0-81.0); PLATELET COUNT (AUTO) 232 /CMM (150-450); RED BLOOD CELL COUNT(AUTO) 3.57 MIL/uL (4.0-5.2); WHITE BLOOD COUNT (AUTO) 4.8 K/uL (4.3-11.0)
[2019-07-16 05:04] LABS: ALBUMIN 2.4 g/dL (3.4-5.0); BILIRUBIN,TOTAL 0.2 mg/dL (0.2-1.0); CALCIUM, SERUM 8.4 mg/dL (8.5-10.1); CREATININE 1.5 mg/dL (0.6-1.3); MAGNESIUM 1.9 mg/dL (1.8-2.4); PHOSPHORUS 3.6 mg/dL (2.5-4.9); POTASSIUM 4.1 mmol/L (3.5-5.1); TOTAL PROTEIN, SERUM 5.9 g/dL (6.4-8.2)
--- NOTE | 2019-07-16 07:22 | NUR ---
ICU/RN CLOSING NOTE PATIENT IN BED CONTINUES ON BIPAP. NO SIGN OF ANY DISTRESS. O2 SATURATIONS AT 97%. NO SIGN OF ANY DISTRESS. ALL SAFETY PRECAUTIONS APPLIED. REPORTED TO MORNING CHARGE NURSE.
[2019-07-16] MEDS ORDERED: BUMETANIDE INJ 8 MG in IV NS 0.9% 48 ML IV ONE (08:00)
[2019-07-16] MEDS: PANTOPRAZOLE 40 MG TABLET.DR PO SCH (08:17)
[2019-07-16] MEDS: BLOOD SUGAR DIAGNOSTIC 1 EACH STRIP IN SCH ×4 (08:17→22:17)
[2019-07-16] MEDS: INSULIN LISPRO/ASPART 100 UNIT/ML CARTRIDGE SQ SCH ×3 (08:23→17:46)
[2019-07-16] MEDS: LEVETIRACETAM (250 MG) 250 MG TABLET PO SCH ×2 (08:41→21:53)
[2019-07-16] MEDS: VIT B CMPLX 3/FA/VIT C/BIOTIN 1 TAB TABLET PO SCH (08:42)
[2019-07-16] MEDS: TACROLIMUS ANHYDROUS 0.5 MG CAPSULE PO SCH ×2 (08:42→21:53)
[2019-07-16] MEDS: CLOPIDOGREL BISULFATE 75 MG TABLET PO SCH (08:42)
[2019-07-16] MEDS: CALCIUM CARB 250MG /VITAMIN D 1 UDTAB PO SCH ×2 (08:42→16:32)
[2019-07-16] MEDS: predniSONE 5 MG TABLET PO SCH (08:42)
[2019-07-16] MEDS: ISOSORBIDE MONONITRATE (30MG) 30 MG TAB.SR.24H PO SCH (08:42)
[2019-07-16] MEDS: MYCOPHENOLATE MOFETIL 250 MG CAPSULE PO SCH ×2 (08:42→16:32)
[2019-07-16] MEDS: DULOXETINE HCL 30 MG CAPSULE.DR PO SCH ×2 (08:42→16:32)
[2019-07-16] MEDS: METOPROLOL SUCCINATE 50 MG TAB.SR.24H PO SCH (08:43)
[2019-07-16] MEDS: DILTIAZEM HCL CD 180 MG PO SCH (08:43)
[2019-07-16] MEDS: DIGOXIN 0.125 MG TABLET PO SCH (08:43)
[2019-07-16] MEDS: APIXABAN 5 MG TABLET PO SCH ×2 (08:44→16:33)
[2019-07-16 09:31] LABS: ABG BASE EXCESS 1.3 mmol/L; ABG OXYGEN SATURATION 90.8 % (92.0-98.5); ABG PCO2 46.6 mmHg (35.0-45.0); ABG PH 7.379 (7.350-7.450); ABG PO2 58.9 mmHg (75.0-100.0); AaDO2 114.7 mmHg; COHb 0.4 % (0.5-1.5); MetHb 0.2 % (0.0-1.5); O2Hb 90.3 % (94.0-97.0); SITE, ABG Left Brachial; VENT MODE, BG NASAL CANNULA
--- NOTE | 2019-07-16 10:34 | NUR ---
WOUND CARE CONSULT WOUND CARE RECEIVED CONSULT FOR WOUNDS. WOUND CARE WILL DEFER CONSULT AND TREATMENT PLANS TO PLASTIC SURGICAL TEAM WHO ARE CURRENTLY FOLLOWING THIS PATIENT. PATIENT WITH ROSA ELENA AT 19, WILL SEE PRN.
--- NOTE | 2019-07-16 11:00 | NUR ---
ICU/RN NOTES PATIENT WAS SEEN AND EVALUATED BY DR. LIU WITH ORDERS TO DOWNGRADE PATIENT TO [facility]. PATIENT CONTINUES TO REMAIN IN STABLE CONDITION. WILL CONTINUE TO MONITOR CLOSELY.
[2019-07-16] MEDS: CEFTRIAXONE 1 G in IV D5W 50 ML IV SCH (11:06)
--- NOTE | 2019-07-16 11:50 | NUR ---
ICU/RN NOTES PATIENT WAS TRANSFERRED TO [facility], ACCOMPANIED BY VASILE PALACIOS. REPORT WAS GIVEN AT BEDSIDE TO GERSON CONKLIN. PATIENT IN CONTINUES TO REMAIN IN STABLE CONDITION. IV ACCESS ON DELORIS INTACT AND PATENT. FLUSHING WELL. NO S/S INFECTION OR INFILTRATION. PATIENT ON O2 THERAPY @4LPM. PATIENT WAS ALSO ABLE TO AMBULATE TO THE BATHROOM RIGHT AFTER GETTING IN THE ROOM. ALL NEEDS ANTICIPATED. CALL LIGHT WITHIN REACHED. BED LOCKED AND IN LOWEST POSITION. SAFETY MAINTAINED.
--- NOTE | 2019-07-16 11:51 | NUR ---
RELAY CHECKER OPENING NOTES RECEIVED PATIENT FROM ICU IN STABLE CONDITION. PATIENT IS AWAKE, ALERT AND ORIENTED X4. PATIENT IS ON 4L OXYGEN VIA NASAL CANULA, TOLERATING WELL, SATURATING WELL @97%. RESPIRATIONS ARE EVEN AND UNLABORED, NO SIGNS AND SYMPTOMS OF RESPIRATORY DISTRESS IS NOTED AT THE MOMENT. PATIENT IS AMBULATORY, GETS UP TO USE THE RESTROOM. PATIENT HAS A MIDLINE IN PLACE, RIGHT BASILIC MIDLINE, INTACT, PATENT AND FLUSHED WELL. NO SIGNS AND SYMPTOMS OF INFILTRATION NOTED. PATIENT IS ON TELE MONITOR, CONTROLLED A FIB NOTED ON THE MONITOR. SAFETY MAINTAINED, CALL LIGHT WITHIN REACH, WILL CONTINUE TO MONITOR.
[2019-07-16] MEDS: Magnesium 1GM/D5W 100ML PREMIX 100 ML IV SCH ×2 (12:21→13:19)
[2019-07-16] MEDS: INSULIN REGULAR, HUMAN 100 UNIT/ML 3 ML VIAL SQ PRN ×3 (12:48→22:27)
[2019-07-16] MEDS: SOD FERRIC GLUC 125 MG in IV NS 0.9% 100 ML IV SCH (14:41)
[2019-07-16] MEDS ORDERED: MUPIROCIN OINT 2% 22 GM TUBE SCH (15:00)
--- NOTE | 2019-07-16 19:32 | NUR ---
MAT MACHINE TENDER CLOSING NOTES PATIENT IS IN STABLE CONDITION, NO ACUTE CHANGES TO PATIENT CONDITION DURING MY SHIFT. ALL PATIENT NEEDS MET. ENDORSED TO TIP MENDER NURSE THAT PATIENT IN ON BIPAP DURING THE NIGHT. RT IS AWARE AND ALREADY SETUP THE EQUIPMENT. IVS REMAINED INTACT, FLUSHED WELL. SAFETY MAINTAINED, CALL LIGHT WITHIN REACH, ENDORSED TO TIP MENDER NURSE TO CONTINUE CARE.
--- NOTE | 2019-07-16 20:28 | NUR ---
BHUPENDRA RN OPENING NOTES RECEIVED PATIENT ON BED IN STABLE CONDITION. PATIENT IS AWAKE, ALERT AND ORIENTED X4. PATIENT IS ON 4L OXYGEN VIA NASAL CANULA, TOLERATING WELL, SATURATING WELL @97%. RESPIRATIONS ARE EVEN AND UNLABORED, NO SIGNS AND SYMPTOMS OF RESPIRATORY DISTRESS IS NOTED AT THE MOMENT. PATIENT IS AMBULATORY, GETS UP TO USE THE RESTROOM. PATIENT HAS A MIDLINE IN PLACE, RIGHT BASILIC MIDLINE, INTACT, PATENT AND FLUSHED WELL. NO SIGNS AND SYMPTOMS OF INFILTRATION NOTED. PATIENT IS ON TELE MONITOR, CONTROLLED A FIB HR 76 NOTED ON THE MONITOR. SAFETY MAINTAINED, CALL LIGHT WITHIN REACH, WILL CONTINUE TO MONITOR.
[2019-07-16] MEDS: OLANZAPINE 10 MG TABLET PO SCH (21:53)
--- NOTE | 2019-07-16 23:28 | NUR ---
TELE/RN NOTES RECEIVED REPORT AND PT. FROM RN DEBORAH. PT. IS LYING IN BED RESTING. BREATHING EVEN AND UNLABORED ON BIPAP. NO SOB, RESPIRATORY DISTRESS OR COMPLAINTS OF PAIN NOTED AT THIS TIME. PT. WITH EXTERNAL CHOCOLATE MAKER PRESENT AND INTACT. CURRENT RHYTHM = AFIB HR 75. BED LOCKED AND IN LOWEST POSITION, SIDE RAILS UP X2, BED ALARM ON, CALL LIGHT WITHIN REACH, WILL CONTINUE TO MONITOR.
[2019-07-17] VITALS: BP 126/77
--- NOTE | 2019-07-17 00:33 | NUR ---
RT PT REMOVED BIPAP AND REFUSING TO PUT BACK ON. NO SOB OR DISTRESS NOTED. RN AWARE. Addendum: 07/17/19 at 0358 by MILLICENT ESPARZA RT Amended: Links added.
[2019-07-17] MEDS: MORPHINE SULFATE INJ 2 MG/ML DISP.SYRIN IV PRN ×3 (00:46→14:54)
[2019-07-17 04:00] VITALS: BP 119/55
--- NOTE | 2019-07-17 06:45 | NUR ---
TELE/RN NOTES PT. IS LYING IN BED RESTING. BREATHING EVEN AND UNLABORED ON BIPAP. NO SOB, RESPIRATORY DISTRESS OR COMPLAINTS OF PAIN NOTED AT THIS TIME. PT. WITH EXTERNAL HR ASSOCIATE PRESENT AND INTACT. CURRENT RHYTHM = AFIB HR 70. ALL PT. NEEDS MET. BED LOCKED AND IN LOWEST POSITION, SIDE RAILS UP X2, BED ALARM ON, CALL LIGHT WITHIN REACH, WILL ENDORSE TO DAYSHIFT NURSE FOR CONTINUITY OF CARE.
--- NOTE | 2019-07-17 07:00 | NUR ---
BATTALION CHIEF NOTES RECEIVED PATIENT FROM SHEET ROCK SANDER NURSE. PT. IS LYING IN BED RESTING. BREATHING EVEN AND UNLABORED WITH NASAL CANULA. NO SOB, RESPIRATORY DISTRESS OR COMPLAINTS OF PAIN NOTED AT THIS TIME. PT. WITH EXTERNAL OVEN OPERATOR. PATIENT HAS AFIB PER TELE MONITOR. ALL PT. NEEDS MET. BED LOCKED AND IN LOWEST POSITION, SIDE RAILS UP X2, BED ALARM ON, CALL LIGHT WITHIN REACH.
[2019-07-17] MEDS: BLOOD SUGAR DIAGNOSTIC 1 EACH STRIP IN SCH ×3 (07:30→17:30)
[2019-07-17 08:00] VITALS: BP 125/45
[2019-07-17] MEDS: METOPROLOL SUCCINATE 50 MG TAB.SR.24H PO SCH (09:00)
[2019-07-17] MEDS: DILTIAZEM HCL CD 180 MG PO SCH (09:00)
[2019-07-17] MEDS: PANTOPRAZOLE 40 MG TABLET.DR PO SCH (09:10)
[2019-07-17] MEDS: INSULIN LISPRO/ASPART 100 UNIT/ML CARTRIDGE SQ SCH ×3 (09:27→17:30)
[2019-07-17] MEDS: INSULIN REGULAR, HUMAN 100 UNIT/ML 3 ML VIAL SQ PRN (09:28)
[2019-07-17] MEDS: CEFTRIAXONE 1 G in IV D5W 50 ML IV SCH (10:07)
[2019-07-17] MEDS: TACROLIMUS ANHYDROUS 0.5 MG CAPSULE PO SCH (10:24)
[2019-07-17] MEDS: VIT B CMPLX 3/FA/VIT C/BIOTIN 1 TAB TABLET PO SCH (10:24)
[2019-07-17] MEDS: LEVETIRACETAM (250 MG) 250 MG TABLET PO SCH (10:25)
[2019-07-17] MEDS: CLOPIDOGREL BISULFATE 75 MG TABLET PO SCH (10:25)
[2019-07-17] MEDS: MYCOPHENOLATE MOFETIL 250 MG CAPSULE PO SCH ×2 (10:25→18:42)
[2019-07-17] MEDS: APIXABAN 5 MG TABLET PO SCH ×2 (10:27→18:43)
[2019-07-17] MEDS: CALCIUM CARB 250MG /VITAMIN D 1 UDTAB PO SCH ×2 (10:28→17:00)
[2019-07-17] MEDS: DULOXETINE HCL 30 MG CAPSULE.DR PO SCH ×2 (10:30→17:00)
[2019-07-17] MEDS: ISOSORBIDE MONONITRATE (30MG) 30 MG TAB.SR.24H PO SCH (10:30)
[2019-07-17] MEDS: predniSONE 5 MG TABLET PO SCH (10:31)
[2019-07-17] MEDS: DIGOXIN 0.125 MG TABLET PO SCH (10:31)
[2019-07-17] MEDS ORDERED: FURO-144 PO (12:52)
[2019-07-17] MEDS: SOD FERRIC GLUC 125 MG in IV NS 0.9% 100 ML IV SCH (14:33)
[2019-07-17 16:00] VITALS: BP 134/68
[2019-07-17] MEDS ORDERED: GABAPENTIN 300 MG CAPSULE PO SCH (17:00)
--- NOTE | 2019-07-17 17:00 | NUR ---
PT REFUSED 1700 MEDS. STATES SHE WANTS TO LEAVE.
[2019-07-17 18:39] LABS: BASOPHILS % (AUTO) 0.5 % (0.0-2.0); EOSINOPHILS % (AUTO) 1.7 % (0.0-6.0); HEMATOCRIT 40 % (33-45); HEMOGLOBIN 13.4 g/dL (11.5-14.8); LYMPHOCYTES # (AUTO) 1.8 /CMM (0.8-4.8); MEAN CORPUSCULAR HGB CONC 33 g/dl (31.0-36.0); MEAN CORPUSCULAR VOLUME 88 fL (82-100); MONOCYTES # (AUTO) 0.5 /CMM (0.1-1.30); MONOCYTES % (AUTO) 5.8 % (2.0-12.0); NEUTROPHILS # (AUTO) 5.8 /CMM (1.8-8.9); PLATELET COUNT (AUTO) 335 /CMM (150-450); WHITE BLOOD COUNT (AUTO) 8.3 K/uL (4.3-11.0)
--- NOTE | 2019-07-17 18:45 | NUR ---
RN D/C NOTES PT TAKEN BY AMBULANCE BACK TO [facility]. PT REMOVED BOTH MIDLINES BY HERSELF. EXITCARE INSTRUCTIONS GIVEN TO EMT'S. REPORT GIVEN TO JOSE NIETO TESTING LEAD AT [facility] SHE REPORTED PT WILL BE GOING BACK TO RM 44A. PT STATED SHE WAS ANGRY WITH HER AND THAT WAS WHY SHE HAD A HIGH BP. AFTER ABOUT 20 MINS TO COOL DOWN BP WNL. PT BELONGINGS LIST SIGNED AND PHOTOS PLACED IN CHART.
[2019-07-17 19:00] LABS: ALBUMIN 3.4 g/dL (3.4-5.0); BILIRUBIN,TOTAL 0.4 mg/dL (0.2-1.0); CALCIUM, SERUM 9.2 mg/dL (8.5-10.1); CREATININE 1.5 mg/dL (0.6-1.3); MAGNESIUM 1.5 mg/dL (1.8-2.4); PHOSPHORUS 2.8 mg/dL (2.5-4.9); POTASSIUM 3.4 mmol/L (3.5-5.1); TOTAL PROTEIN, SERUM 7.6 g/dL (6.4-8.2)
[2019-07-18 07:58] LABS: PTH, INTACT 29 pg/mL (15-65)
[2019-07-18 15:17] LABS: *SPE A/G RATIO 0.8 (0.7-1.7); *SPE ALBUMIN 3.2 g/dL (2.9-4.4); *SPE ALPHA-1-GLOBULIN 0.3 g/dL (0.0-0.4); *SPE BETA GLOBULIN 1.3 g/dL (0.7-1.3); *SPE GLOBULIN, TOTAL 3.8 g/dL (2.2-3.9); *SPE M-SPIKE Not Observed g/dL (Not Observed); *SPEGAMMA GLOBULIN 1.3 g/dL (0.4-1.8)
== END 2019-07-17 19:03 | DRG 291 ==
LOC: ER 19:57 → TELE 22:00 → ICU 07-15 11:28 → TELE1 07-16 11:30 → MEDSG1 07-17 11:38
PROVIDERS: ADMIT Internal Medicine; ATTEND Nurse Practitioner Acute Care
PROC: 5A09357 Assistance with Respiratory Ventilation, Less than 24 Consecutive Hours, Continuous Positive Airway Pressure (ICD-10-PCS; principal; 2019-07-15)
PROC: 05HB33Z Insertion of Infusion Device into Right Basilic Vein, Percutaneous Approach (ICD-10-PCS; 2019-07-15)
DX: I13.2 Hypertensive heart and chronic kidney disease with heart failure and with stage 5 chronic kidney disease, or end stage renal disease (principal); N17.0 Acute kidney failure with tubular necrosis; J96.21 Acute and chronic respiratory failure with hypoxia; J96.22 Acute and chronic respiratory failure with hypercapnia; N18.6 End stage renal disease; I50.33 Acute on chronic diastolic (congestive) heart failure; E87.1 Hypo-osmolality and hyponatremia; D68.59 Other primary thrombophilia; N39.0 Urinary tract infection, site not specified; Z94.0 Kidney transplant status; E66.2 Morbid (severe) obesity with alveolar hypoventilation; E44.0 Moderate protein-calorie malnutrition; G93.40 Encephalopathy, unspecified; I48.91 Unspecified atrial fibrillation; I25.10 Atherosclerotic heart disease of native coronary artery without angina pectoris; J44.9 Chronic obstructive pulmonary disease, unspecified; G40.909 Epilepsy, unspecified, not intractable, without status epilepticus; E11.65 Type 2 diabetes mellitus with hyperglycemia; E11.42 Type 2 diabetes mellitus with diabetic polyneuropathy; Z79.4 Long term (current) use of insulin; E11.22 Type 2 diabetes mellitus with diabetic chronic kidney disease; Z79.02 Long term (current) use of antithrombotics/antiplatelets; Z79.01 Long term (current) use of anticoagulants; E83.42 Hypomagnesemia; F20.9 Schizophrenia, unspecified; M32.9 Systemic lupus erythematosus, unspecified; E78.5 Hyperlipidemia, unspecified; Z68.35 Body mass index [BMI] 35.0-35.9, adult; Z88.8 Allergy status to other drugs, medicaments and biological substances; T38.0X5A Adverse effect of glucocorticoids and synthetic analogues, initial encounter; Y92.9 Unspecified place or not applicable; Z74.09 Other reduced mobility; G47.10 Hypersomnia, unspecified; L89.159 Pressure ulcer of sacral region, unspecified stage; I77.810 Thoracic aortic ectasia
CPT/HCPCS: 36410; 36415; 36600; 71045-TC; 80048-TC; 80053-TC; 80061-TC; 80076-TC; 80162-TC; 80197; 81000-TC; 82272-TC; 82550-TC; 82803-TC; 82962-TC; 83540-TC; 83605-TC; 83735-TC; 83880; 83970; 84100-TC; 84155; 84165; 84443-TC; 84484-TC; 85025-TC; 85730-TC; 87040-TC; 87081-TC; 87086-TC; 93307-TC; 94760-TC; A4216; G0378; J0696; J1815; J1940; J2270; J2916; J3475; J3490; J7030; J7040; J7050; J7060; J7507; J7512; J7517

== ENCOUNTER 2022-07-16 22:38 | Inpatient (IN) | payer MEDICARE, OTHER ==
[~2022-07-16] VITALS: Ht 167.6 cm; Wt 106.6 kg
[~2022-07-16 22:38] MED LIST changes: -CEPH500C2 PO; +FURO-144 PO; -ISOS30TA6 PO; +ISOS30TA86 PO; -TACR1CAP PO; +TACR1CAP2 PO
[2022-07-16] MEDS ORDERED: METOPROLOL TARTRATE INJ 5 MG/5 ML AMPUL ONE (23:29)
[2022-07-16] MEDS ORDERED: METOPROLOL TARTRATE INJ 5 MG/5 ML AMPUL IV ONE (23:30)
[2022-07-16] MEDS ORDERED: LORAZEPAM INJ 2 MG/ML VIAL ONE (23:34)
[2022-07-17] VITALS (79 sets, daily range): BP systolic 80–149; BP diastolic 44–100
[2022-07-17] MEDS ORDERED: LORAZEPAM INJ 2 MG/ML VIAL IV ONE
[2022-07-17 00:05] LABS: BILIRUBIN,URINE 1+ (NEGATIVE); LEUKOCYTE ESTERASE ,URINE 2+ (NEGATIVE); NITRITE, URINE NEGATIVE (NEGATIVE); PROTEIN,URINE 3+ mg/dl (NEGATIVE); UGLUCOSE NEGATIVE (NEGATIVE); UROBILINOGEN,URINE 0.2 EU/dL (0.2)
[2022-07-17 00:06] LABS: COLOR,URINE DARK YELLOW (YELLOW)
[2022-07-17 00:10] LABS: WBC,URINE TOO NUMEROUS TO COUN /HPF (0-3)
[2022-07-17 00:11] LABS: BACTERIA,URINE Few /HPF (None Seen); YEAST,URINE Few /HPF (None Seen)
[2022-07-17] MEDS ORDERED: CEFEPIME 1 GM in IV D5W 50 ML IV ONE (00:30)
[2022-07-17] MEDS ORDERED: CEFEPIME 1 GM VIAL ONE (00:43)
[2022-07-17] MEDS ORDERED: KETAMINE HCL (500MG/10ML) 50 MG/ML VIAL ONE (00:56)
[2022-07-17 00:58] LABS: ABG BASE EXCESS -4.8 mmol/L; ABG PCO2 51.3 mmHg (35.0-45.0); ABG PH 7.256 (7.350-7.450); ABG PO2 78.1 mmHg (75.0-100.0); COHb 0.3 % (0.5-1.5); MetHb 0.3 % (0.0-1.5); O2Hb 93.5 % (94.0-97.0); SITE, ABG Right Radial; VENT MODE, BG 5L NASAL CANNULA
[2022-07-17] MEDS ORDERED: NOREPINEPHRINE 4 MG/4 ML AMPUL IV ONE (00:59)
[2022-07-17 01:05] LABS: BASOPHILS % (AUTO) 0.6 % (0.0-2.0); EOSINOPHILS % (AUTO) 0.9 % (0.0-6.0); HEMATOCRIT 27 % (33-45); HEMOGLOBIN 8.4 g/dL (11.5-14.8); LYMPHOCYTES % (AUTO) 15.1 % (20.0-44.0); MEAN CORPUSCULAR HGB CONC 31 g/dl (31.0-36.0); MEAN CORPUSCULAR VOLUME 84 fL (82-100); MONOCYTES # (AUTO) 0.5 K/uL (0.1-1.30); MONOCYTES % (AUTO) 8.1 % (2.0-12.0); NEUTROPHILS # (AUTO) 4.7 K/uL (1.8-8.9); NEUTROPHILS % (AUTO) 75.3 % (43.0-81.0); PLATELET COUNT (AUTO) 122 K/uL (150-450); RED BLOOD CELL COUNT(AUTO) 3.21 MIL/uL (4.0-5.2); WHITE BLOOD COUNT (AUTO) 6.3 K/uL (4.3-11.0)
[2022-07-17 01:14] LABS: SERUM AMMONIA 53 umol/L (11-32)
[2022-07-17 01:15] LABS: CARBON DIOXIDE 26 mmol/L (21-32); CHLORIDE 97 mmol/L (98-107); GLUCOSE 222 mg/dL (74-106); POTASSIUM 3.6 mmol/L (3.5-5.1); SODIUM SERUM 132 mmol/L (136-145); UREA NITROGEN, BLOOD 36 mg/dL (7-18)
[2022-07-17 01:26] LABS: ALANINE AMINOTRANSFERASE 39 U/L (12-78); ALBUMIN 1.9 g/dL (3.4-5.0); ALKALINE PHOSPHATASE 110 U/L (46-116); ASPARTATE AMINOTRANSFERASE 34 U/L (15-37); BILIRUBIN,DIRECT 0.3 mg/dL (0.0-0.2); BILIRUBIN,TOTAL 0.6 mg/dL (0.2-1.0); TOTAL PROTEIN, SERUM 4.9 g/dL (6.4-8.2)
[2022-07-17] MEDS ORDERED: MECLIZINE HCL 25 MG TABLET PO PRN ×3 (02:00→10:00)
[2022-07-17 02:05] LABS: THYROID STIMULATING HORMONE 0.684 uIU/mL (0.358-3.74)
[2022-07-17] MEDS ORDERED: PHENYLEPHRINE 50 MG in IV NS 0.9% 245 ML IV PRN (02:30)
[2022-07-17] MEDS ORDERED: PROPOFOL 10MG/ML 50ML 50 ML IV PRN (02:30)
[2022-07-17] MEDS ORDERED: KETAMINE HCL(200MG/20ML) 10 MG/ML VIAL IM ONE (02:30)
[2022-07-17] MEDS ORDERED: ROCURONIUM BROMIDE 50 MG/5 ML IV ONE (02:30)
[2022-07-17] MEDS ORDERED: ACETAMINOPHEN 650 MG/SUPP.RECT RC PRN (02:30)
[2022-07-17] MEDS ORDERED: VANCOMYCIN 2 GM in IV D5W 500 ML IV ONE (03:00)
[2022-07-17] MEDS ORDERED: AMIODARONE 900 MG in IV D5W 482 ML IV PRN (03:30)
[2022-07-17] MEDS ORDERED: AMIODARONE 150 MG in IV D5W 100 ML IV ONE (03:30)
[2022-07-17] MEDS ORDERED: AMIODARONE 150 MG/3 ML VIAL IV ONE ×2 (03:37→04:35)
[2022-07-17] MEDS ORDERED: PHENYLEPHRINE 10 MG/ML VIAL ONE (04:22)
[2022-07-17] MEDS ORDERED: VANCOMYCIN 1 GM VIAL ONE (04:23)
[2022-07-17] MEDS ORDERED: MIDAZOLAM 50 MG/10 ML VIAL ONE (04:50)
[2022-07-17] MEDS: MIDAZOLAM HCL 100 MG in IV NS 0.9% 80 ML IV PRN ×2 (04:58→21:40)
[2022-07-17] MEDS: AMIODARONE 450 MG in IV D5W 241 ML IV PRN ×2 (05:12→13:09)
[2022-07-17] MEDS: HYDROCORTISONE SOD SUCCINATE 100 MG/2 ML VIAL IV SCH ×3 (05:15→21:04)
[2022-07-17 06:18] LABS: ABG BASE EXCESS -2.8 mmol/L; ABG OXYGEN SATURATION 99.2 % (92.0-98.5); ABG PCO2 30.8 mmHg (35.0-45.0); ABG PH 7.444 (7.350-7.450); ABG PO2 219.1 mmHg (75.0-100.0); AaDO2 463.1 mmHg; COHb 0.3 % (0.5-1.5); MetHb 0.1 % (0.0-1.5); O2Hb 98.8 % (94.0-97.0); PEEP,BG 0 cm H2O; SITE, ABG Right Radial; VT, ABG 450 mL
[2022-07-17] MEDS ORDERED: PANTOPRAZOLE 40 MG TABLET.DR PO SCH (07:30)
[2022-07-17] MEDS ORDERED: HYDROCORTISONE SOD SUCCINATE 100 MG/2 ML VIAL IV SCH (08:30)
[2022-07-17] MEDS ORDERED: CLOPIDOGREL BISULFATE 75 MG TABLET PO SCH (09:00)
[2022-07-17] MEDS: COLCHICINE 0.6 MG TABLET GT SCH ×2 (09:00→16:55)
[2022-07-17] MEDS ORDERED: MYCOPHENOLATE MOFETIL 250 MG CAPSULE PO SCH (09:00)
[2022-07-17] MEDS ORDERED: TACROLIMUS ANHYDROUS 0.5 MG CAPSULE PO SCH (09:00)
[2022-07-17] MEDS ORDERED: ISOSORBIDE MONONITRATE (30MG) 30 MG TAB.SR.24H PO SCH ×2 (09:00)
[2022-07-17] MEDS ORDERED: METOPROLOL SUCCINATE 50 MG TAB.SR.24H PO SCH (09:00)
[2022-07-17] MEDS ORDERED: VIT B CMPLX 3/FA/VIT C/BIOTIN 1 TAB TABLET PO SCH (09:00)
[2022-07-17] MEDS ORDERED: LEVETIRACETAM (250 MG) 250 MG TABLET PO SCH ×2 (09:00)
[2022-07-17] MEDS ORDERED: DILTIAZEM HCL CD 180 MG PO SCH (09:00)
[2022-07-17] MEDS: FENTANYL CITRAT IV 2,500 MCG in IV NS 0.9% 200 ML IV PRN (09:13)
[2022-07-17] MEDS ORDERED: AMLO-213 PO (09:14)
[2022-07-17] MEDS ORDERED: ESCI10TA PO (09:14)
[2022-07-17] MEDS ORDERED: POLY17PO4 PO (09:14)
[2022-07-17] MEDS ORDERED: VALA100026 PO (09:14)
[2022-07-17] MEDS ORDERED: BUPR1FIL3 SL (09:14)
[2022-07-17] MEDS ORDERED: MAGN400O6 PO (09:14)
[2022-07-17] MEDS ORDERED: BUPR-96 PO (09:14)
[2022-07-17] MEDS ORDERED: INSU100V7 SQ (09:14)
[2022-07-17] MEDS ORDERED: SENN-261 PO (09:14)
[2022-07-17] MEDS ORDERED: SIRO1TAB6 PO (09:14)
[2022-07-17] MEDS ORDERED: MAGN500T2 PO (09:14)
[2022-07-17] MEDS ORDERED: ACET-2605 PO (09:14)
[2022-07-17] MEDS ORDERED: INSU100V27 SQ ×2 (09:14)
[2022-07-17] MEDS ORDERED: ASPI-1169 PO (09:14)
[2022-07-17] MEDS ORDERED: PREG25CA51 PO (09:14)
[2022-07-17] MEDS ORDERED: ICOS1CAP PO (09:14)
[2022-07-17] MEDS ORDERED: ACET-868 PO (09:14)
[2022-07-17] MEDS ORDERED: NITR0.4T48 SL (09:14)
[2022-07-17] MEDS ORDERED: BISA10SU11 RC (09:14)
[2022-07-17] MEDS ORDERED: QUET200T PO (09:14)
[2022-07-17] MEDS ORDERED: COLC0.6C3 PO (09:14)
[2022-07-17] MEDS ORDERED: LORA-258 PO (09:14)
[2022-07-17] MEDS ORDERED: NA P133E RC (09:14)
[2022-07-17] MEDS ORDERED: DOCU-141 PO (09:14)
[2022-07-17] MEDS ORDERED: DIPH1TAB PO (09:14)
[2022-07-17] MEDS: SULFAMETHOXAZOLE/TRIMETHOPRIM 15 ML in IV D5W 250 ML IV SCH ×3 (09:30→23:34)
[2022-07-17] MEDS: APIXABAN 2.5 MG TABLET PO SCH ×2 (09:32→16:08)
[2022-07-17] MEDS: PANTOPRAZOLE 40 MG VIAL IV SCH (10:15)
[2022-07-17] MEDS: CALCIUM CARB 250MG /VITAMIN D 1 UDTAB PO SCH ×2 (10:16→16:07)
[2022-07-17] MEDS: PHENYLEPHRINE 50 MG in IV NS 0.9% 245 ML IV PRN ×3 (12:19→21:39)
[2022-07-17] MEDS ORDERED: Medication Not On Formulary EA (Icosapent Ethyl (Vascepa) 1 GM) PO SCH (12:30)
[2022-07-17] MEDS ORDERED: POLYETHYLENE GLYCOL 3350 17 GM POWD.PACK PO PRN (12:30)
[2022-07-17] MEDS ORDERED: ACETAMINOPHEN 325 MG TABLET PO PRN (12:30)
[2022-07-17] MEDS ORDERED: ACETAMINOPHEN ES 500 MG TABLET PO PRN (12:30)
[2022-07-17] MEDS ORDERED: Medication Not On Formulary EA (Buprenorphine Hcl/Naloxone Hcl (Suboxone 8 Mg-2 Mg Sl Fi SL SCH (12:30)
[2022-07-17] MEDS ORDERED: BISACODYL SUPP (10 MG) 10 MG/SUPP.RECT SUPP.RECT RC PRN (12:30)
[2022-07-17] MEDS ORDERED: NITROGLYCERIN 0.4 MG/TAB BOTTLE SL PRN (12:30)
[2022-07-17] MEDS ORDERED: DOCUSATE SODIUM 100 MG CAPSULE PO SCH (12:30)
[2022-07-17] MEDS ORDERED: LORAZEPAM 0.5 MG TABLET PO PRN (12:30)
[2022-07-17] MEDS ORDERED: BUPROPION XL 150 MG TAB.ER.24 PO SCH (12:30)
[2022-07-17] MEDS ORDERED: ESCITALOPRAM OXALATE (10 MG) 10 MG TABLET PO SCH (12:30)
[2022-07-17] MEDS ORDERED: MAGNESIUM HYDROXIDE 30 ML UDC PO PRN (12:30)
[2022-07-17] MEDS ORDERED: NA PHOS,M-B/NA PHOS,DI-BA 1 EA ENEMA RC PRN (12:30)
[2022-07-17] MEDS ORDERED: MAGNESIUM OXIDE 400 MG TABLET PO SCH (13:00)
[2022-07-17] MEDS ORDERED: DIGOXIN 0.125 MG TABLET PO SCH ×2 (13:00)
[2022-07-17] MEDS ORDERED: APIXABAN 2.5 MG TABLET GT SCH (16:25)
[2022-07-17] MEDS ORDERED: CALCIUM CARB 250MG /VITAMIN D 1 UDTAB GT SCH (16:26)
[2022-07-17] MEDS ORDERED: PHARMACY TO CHANGE PO MEDS TO GT/NG XX PRN (16:30)
[2022-07-17] MEDS ORDERED: LORAZEPAM 0.5 MG TABLET GT PRN (16:36)
[2022-07-17] MEDS ORDERED: ISOSORBIDE MONONITRATE 20 MG TABLET PO SCH (16:39)
[2022-07-17] MEDS ORDERED: MAGNESIUM HYDROXIDE 30 ML UDC GT PRN (16:42)
[2022-07-17] MEDS: QUETIAPINE FUMARATE 100 MG TABLET GT SCH (16:56)
[2022-07-17] MEDS: INSULIN ASPART/LISPRO 100 UNIT/ML CARTRIDGE SQ SCH (16:57)
[2022-07-17] MEDS: VALACYCLOVIR HCL 500 MG TABLET GT SCH (16:57)
[2022-07-17] MEDS ORDERED: QUETIAPINE FUMARATE 100 MG TABLET PO SCH (17:00)
[2022-07-17] MEDS ORDERED: SIROLIMUS 1 MG PO SCH (17:00)
[2022-07-17] MEDS ORDERED: COLCHICINE 0.6 MG TABLET GT SCH (17:00)
[2022-07-17] MEDS ORDERED: COLCHICINE 0.6 MG TABLET PO SCH (17:00)
[2022-07-17] MEDS ORDERED: DEXTROSE 50%-WATER 50 ML DISP.SYRIN IV PRN (17:00)
[2022-07-17] MEDS ORDERED: VALACYCLOVIR HCL 500 MG TABLET PO SCH (17:00)
[2022-07-17] MEDS: BLOOD SUGAR DIAGNOSTIC 1 EACH STRIP IN SCH ×2 (17:12→23:29)
[2022-07-17] MEDS: INSULIN REGULAR, HUMAN 100 UNIT/ML 3 ML VIAL SQ PRN ×2 (17:15→23:36)
[2022-07-17] MEDS: MYCOPHENOLATE MOFETIL 250 MG CAPSULE PO SCH (17:20)
[2022-07-17] MEDS: PREGABALIN 25 MG CAPSULE GT SCH ×2 (17:20→23:34)
[2022-07-17] MEDS ORDERED: BLOOD SUGAR DIAGNOSTIC 1 EACH STRIP IN SCH (18:00)
[2022-07-17] MEDS: buPROPion 75 MG TABLET GT SCH (21:03)
[2022-07-17] MEDS: CEFEPIME 2 GM in IV D5W 100 ML IV SCH (21:03)
[2022-07-17] MEDS: TACROLIMUS ANHYDROUS 0.5 MG CAPSULE GT SCH (21:04)
[2022-07-17] MEDS: OLANZAPINE 5 MG TABLET GT SCH (21:04)
[2022-07-17] MEDS: LEVETIRACETAM SOL (5 ML) 100 MG/ML UDC GT SCH (21:04)
[2022-07-17] MEDS: SENNOSIDES 8.6 MG TABLET GT SCH (21:05)
[2022-07-17] MEDS ORDERED: GABAPENTIN 300 MG CAPSULE PO SCH ×2 (22:00)
[2022-07-17] MEDS ORDERED: ATORVASTATIN 40 MG TABLET PO SCH ×2 (22:00)
[2022-07-17] MEDS: INSULIN GLARGINE, 100 UNIT/ML CARTRIDGE SQ SCH (23:39)
[2022-07-18] VITALS (94 sets, daily range): BP systolic 79–118; BP diastolic 49–76
[2022-07-18] MEDS: AMIODARONE 450 MG in IV D5W 241 ML IV PRN (02:57)
[2022-07-18 04:39] LABS: BASOPHILS % (AUTO) 0.2 % (0.0-2.0); EOSINOPHILS % (AUTO) 0.1 % (0.0-6.0); HEMATOCRIT 26 % (33-45); HEMOGLOBIN 8.4 g/dL (11.5-14.8); LYMPHOCYTES # (AUTO) 0.3 K/uL (0.8-4.8); LYMPHOCYTES % (AUTO) 5.7 % (20.0-44.0); MEAN CORPUSCULAR HGB CONC 33 g/dl (31.0-36.0); MEAN CORPUSCULAR VOLUME 82 fL (82-100); MONOCYTES # (AUTO) 0.1 K/uL (0.1-1.30); MONOCYTES % (AUTO) 2.5 % (2.0-12.0); NEUTROPHILS # (AUTO) 4.9 K/uL (1.8-8.9); NEUTROPHILS % (AUTO) 91.5 % (43.0-81.0); PLATELET COUNT (AUTO) 195 K/uL (150-450); RED BLOOD CELL COUNT(AUTO) 3.16 MIL/uL (4.0-5.2); WHITE BLOOD COUNT (AUTO) 5.3 K/uL (4.3-11.0)
[2022-07-18 04:54] LABS: ALBUMIN 1.6 g/dL (3.4-5.0); BILIRUBIN,TOTAL 0.4 mg/dL (0.2-1.0); CALCIUM, SERUM 6.5 mg/dL (8.5-10.1); CREATININE 4.1 mg/dL (0.6-1.3); TOTAL PROTEIN, SERUM 4.8 g/dL (6.4-8.2)
[2022-07-18 04:55] LABS: POTASSIUM 2.7 mmol/L (3.5-5.1)
[2022-07-18] MEDS: PREGABALIN 25 MG CAPSULE GT SCH ×3 (05:12→17:11)
[2022-07-18] MEDS: HYDROCORTISONE SOD SUCCINATE 100 MG/2 ML VIAL IV SCH ×3 (05:12→21:05)
[2022-07-18] MEDS: PHENYLEPHRINE 50 MG in IV NS 0.9% 245 ML IV PRN ×4 (05:26→20:06)
[2022-07-18] MEDS: BLOOD SUGAR DIAGNOSTIC 1 EACH STRIP IN SCH ×3 (06:16→17:30)
[2022-07-18] MEDS: INSULIN REGULAR, HUMAN 100 UNIT/ML 3 ML VIAL SQ PRN ×3 (06:20→17:30)
[2022-07-18 08:17] LABS: ABG BASE EXCESS -5.6 mmol/L; ABG OXYGEN SATURATION 96.2 % (92.0-98.5); ABG PH 7.374 (7.350-7.450); ABG PO2 90.8 mmHg (75.0-100.0); AaDO2 300.7 mmHg; COHb 0.3 % (0.5-1.5); MetHb 0.2 % (0.0-1.5); O2Hb 95.7 % (94.0-97.0); PEEP,BG 0 cm H2O; SITE, ABG Left Radial; VENT MODE, BG AC 60%; VT, ABG 450 mL
[2022-07-18] MEDS: INSULIN ASPART/LISPRO 100 UNIT/ML CARTRIDGE SQ SCH ×3 (08:21→17:28)
[2022-07-18] MEDS: LEVETIRACETAM SOL (5 ML) 100 MG/ML UDC GT SCH ×2 (08:22→21:04)
[2022-07-18] MEDS: ESCITALOPRAM OXALATE (10 MG) 10 MG TABLET GT SCH (08:22)
[2022-07-18] MEDS: TACROLIMUS ANHYDROUS 0.5 MG CAPSULE GT SCH ×2 (08:23→21:04)
[2022-07-18] MEDS: MYCOPHENOLATE MOFETIL 250 MG CAPSULE PO SCH ×2 (08:23→16:59)
[2022-07-18] MEDS: DOCUSATE SODIUM LIQ 100 MG/10 ML UDC GT SCH (08:23)
[2022-07-18] MEDS: COLCHICINE 0.6 MG TABLET GT SCH ×2 (08:23→17:00)
[2022-07-18] MEDS: QUETIAPINE FUMARATE 100 MG TABLET GT SCH ×2 (08:23→16:58)
[2022-07-18] MEDS: ASPIRIN 81 MG TAB.CHEW GT SCH (08:23)
[2022-07-18] MEDS: PANTOPRAZOLE 40 MG VIAL IV SCH (08:24)
[2022-07-18] MEDS: MAGNESIUM OXIDE 400 MG TABLET GT SCH (08:24)
[2022-07-18] MEDS: VIT B CMPLX 3/FA/VIT C/BIOTIN 1 TAB TABLET GT SCH (08:24)
[2022-07-18] MEDS: CALCIUM CARB 250MG /VITAMIN D 1 UDTAB GT SCH ×2 (08:24→16:59)
[2022-07-18] MEDS: APIXABAN 2.5 MG TABLET GT SCH ×2 (08:25→16:59)
[2022-07-18] MEDS: VALACYCLOVIR HCL 500 MG TABLET GT SCH (08:27)
[2022-07-18] MEDS: buPROPion 75 MG TABLET GT SCH ×2 (08:28→21:05)
[2022-07-18] MEDS ORDERED: DILTIAZEM HCL CD 180 MG PO SCH (09:00)
[2022-07-18] MEDS ORDERED: CLOPIDOGREL BISULFATE 75 MG TABLET PO SCH (09:00)
[2022-07-18] MEDS: ISOSORBIDE MONONITRATE 20 MG TABLET PO SCH ×2 (09:00→17:00)
[2022-07-18] MEDS ORDERED: METOPROLOL SUCCINATE 50 MG TAB.SR.24H PO SCH (09:00)
[2022-07-18] MEDS ORDERED: NEPRO 1,000 ML BOTTLE GT PRN (10:30)
[2022-07-18] MEDS ORDERED: VANCOMYCIN POST DIALYSIS 500MG IV PRN ×2 (11:30)
[2022-07-18] MEDS: FENTANYL CITRAT IV 2,500 MCG in IV NS 0.9% 200 ML IV PRN (12:23)
[2022-07-18] MEDS: SULFAMETHOXAZOLE/TRIMETHOPRIM 15 ML in IV D5W 250 ML IV SCH ×2 (12:31→18:10)
[2022-07-18 13:20] LABS: CREATININE 2.1 mg/dL (0.6-1.3); POTASSIUM 3.3 mmol/L (3.5-5.1)
[2022-07-18] MEDS: MICAFUNGIN SODIUM 100 MG in IV NS 0.9% 100 ML IV SCH (13:36)
[2022-07-18] MEDS ORDERED: VANCOMYCIN 1 GM in IV D5W 250 ML IV SCH (16:00)
[2022-07-18] MEDS: ACYCLOVIR 800 MG TABLET PO SCH (17:01)
[2022-07-18] MEDS ORDERED: POTASSIUM CHLORIDE 20 MEQ POWDER PACKET GT ONE (19:00)
[2022-07-18] MEDS: SENNOSIDES 8.6 MG TABLET GT SCH (21:04)
[2022-07-18] MEDS: OLANZAPINE 5 MG TABLET GT SCH (21:04)
[2022-07-18] MEDS: CEFEPIME 2 GM in IV D5W 100 ML IV SCH (21:04)
[2022-07-18] MEDS: INSULIN GLARGINE, 100 UNIT/ML CARTRIDGE SQ SCH (22:39)
[2022-07-19] VITALS (80 sets, daily range): BP systolic 92–154; BP diastolic 58–99
[2022-07-19] MEDS: PHENYLEPHRINE 50 MG in IV NS 0.9% 245 ML IV PRN ×3 (00:44→17:56)
[2022-07-19] MEDS: BLOOD SUGAR DIAGNOSTIC 1 EACH STRIP IN SCH ×4 (00:46→18:52)
[2022-07-19] MEDS: SULFAMETHOXAZOLE/TRIMETHOPRIM 15 ML in IV D5W 250 ML IV SCH ×3 (00:46→19:41)
[2022-07-19] MEDS: PREGABALIN 25 MG CAPSULE GT SCH ×4 (00:46→18:48)
[2022-07-19] MEDS: HYDROCORTISONE SOD SUCCINATE 100 MG/2 ML VIAL IV SCH ×2 (05:42→13:35)
[2022-07-19] MEDS ORDERED: DEXTROSE 50%-WATER 50 ML DISP.SYRIN IV PRN (08:00)
[2022-07-19] MEDS ORDERED: INSULIN REGULAR, HUMAN 100 UNIT/ML 3 ML VIAL SQ PRN (08:00)
[2022-07-19 08:22] LABS: BASOPHILS % (AUTO) 0.3 % (0.0-2.0); EOSINOPHILS % (AUTO) 0.1 % (0.0-6.0); HEMATOCRIT 25 % (33-45); HEMOGLOBIN 8.1 g/dL (11.5-14.8); LYMPHOCYTES # (AUTO) 0.3 K/uL (0.8-4.8); LYMPHOCYTES % (AUTO) 5.1 % (20.0-44.0); MEAN CORPUSCULAR HGB CONC 32 g/dl (31.0-36.0); MEAN CORPUSCULAR VOLUME 81 fL (82-100); MONOCYTES # (AUTO) 0.3 K/uL (0.1-1.30); MONOCYTES % (AUTO) 5.1 % (2.0-12.0); NEUTROPHILS # (AUTO) 5.5 K/uL (1.8-8.9); NEUTROPHILS % (AUTO) 89.4 % (43.0-81.0); PLATELET COUNT (AUTO) 216 K/uL (150-450); RED BLOOD CELL COUNT(AUTO) 3.07 MIL/uL (4.0-5.2); WHITE BLOOD COUNT (AUTO) 6.1 K/uL (4.3-11.0)
[2022-07-19] MEDS: DOCUSATE SODIUM LIQ 100 MG/10 ML UDC GT SCH (08:22)
[2022-07-19 08:43] LABS: CALCIUM, SERUM 7.6 mg/dL (8.5-10.1); CREATININE 2.9 mg/dL (0.6-1.3); POTASSIUM 3.4 mmol/L (3.5-5.1)
[2022-07-19] MEDS: QUETIAPINE FUMARATE 100 MG TABLET GT SCH ×2 (09:00→17:00)
[2022-07-19] MEDS: INSULIN ASPART/LISPRO 100 UNIT/ML CARTRIDGE SQ SCH ×3 (10:31→17:30)
[2022-07-19] MEDS: APIXABAN 2.5 MG TABLET GT SCH ×2 (10:32→18:50)
[2022-07-19] MEDS: TACROLIMUS ANHYDROUS 0.5 MG CAPSULE GT SCH (10:33)
[2022-07-19] MEDS: COLCHICINE 0.6 MG TABLET GT SCH ×2 (10:33→18:48)
[2022-07-19] MEDS: ESCITALOPRAM OXALATE (10 MG) 10 MG TABLET GT SCH (10:33)
[2022-07-19] MEDS: buPROPion 75 MG TABLET GT SCH ×2 (10:33→11:28)
[2022-07-19] MEDS: ASPIRIN 81 MG TAB.CHEW GT SCH (10:33)
[2022-07-19] MEDS: MAGNESIUM OXIDE 400 MG TABLET GT SCH (10:34)
[2022-07-19] MEDS: VIT B CMPLX 3/FA/VIT C/BIOTIN 1 TAB TABLET GT SCH (10:34)
[2022-07-19] MEDS: CALCIUM CARB 250MG /VITAMIN D 1 UDTAB GT SCH ×2 (10:34→18:49)
[2022-07-19] MEDS: PANTOPRAZOLE 40 MG VIAL IV SCH (10:34)
[2022-07-19] MEDS: MYCOPHENOLATE MOFETIL 250 MG CAPSULE PO SCH ×2 (10:36→18:49)
[2022-07-19] MEDS: LEVETIRACETAM SOL (5 ML) 100 MG/ML UDC GT SCH (10:36)
[2022-07-19] MEDS: ACYCLOVIR 800 MG TABLET PO SCH ×2 (11:27→18:49)
[2022-07-19] MEDS: MICAFUNGIN SODIUM 100 MG in IV NS 0.9% 100 ML IV SCH (13:35)
[2022-07-19] MEDS ORDERED: IV NS 0.9% 250 ML IV PRN (15:30)
[2022-07-19] MEDS ORDERED: SUCCINYLCHOLINE CHLORIDE 20 MG/ML VIAL IV ONE (20:29)
[2022-07-19] MEDS ORDERED: ETOMIDATE 2 MG/ML VIAL IV ONE (20:29)
[2022-07-19] MEDS ORDERED: ROCURONIUM BROMIDE 50 MG/5 ML IV ONE (20:29)
== END 2022-07-19 20:30 | disposition short-term general hospital (02) | DRG 871 ==
LOC: ER 22:52 → ICU 07-17 01:42
PROVIDERS: ADMIT Nurse Practitioner Acute Care; ATTEND Nurse Practitioner Acute Care
PROC: 5A1945Z Respiratory Ventilation, 24-96 Consecutive Hours (ICD-10-PCS; principal; 2022-07-17)
PROC: 0BH18EZ Insertion of Endotracheal Airway into Trachea, Via Natural or Artificial Opening Endoscopic (ICD-10-PCS; 2022-07-17)
PROC: 5A1D70Z Performance of Urinary Filtration, Intermittent, Less than 6 Hours Per Day (ICD-10-PCS; 2022-07-17)
PROC: 05HY33Z Insertion of Infusion Device into Upper Vein, Percutaneous Approach (ICD-10-PCS; 2022-07-18)
DX: A41.9 Sepsis, unspecified organism (principal); E43 Unspecified severe protein-calorie malnutrition; N17.0 Acute kidney failure with tubular necrosis; J96.01 Acute respiratory failure with hypoxia; I50.33 Acute on chronic diastolic (congestive) heart failure; R65.21 Severe sepsis with septic shock; J96.02 Acute respiratory failure with hypercapnia; N18.6 End stage renal disease; J18.9 Pneumonia, unspecified organism; T86.12 Kidney transplant failure; I13.2 Hypertensive heart and chronic kidney disease with heart failure and with stage 5 chronic kidney disease, or end stage renal disease; D68.59 Other primary thrombophilia; J98.11 Atelectasis; N39.0 Urinary tract infection, site not specified; E87.1 Hypo-osmolality and hyponatremia; Z20.822 Contact with and (suspected) exposure to COVID-19; Y83.0 Surgical operation with transplant of whole organ as the cause of abnormal reaction of the patient, or of later complication, without mention of misadventure at the time of the procedure; Y95 Nosocomial condition; G40.909 Epilepsy, unspecified, not intractable, without status epilepticus; I25.10 Atherosclerotic heart disease of native coronary artery without angina pectoris; E11.22 Type 2 diabetes mellitus with diabetic chronic kidney disease; D63.8 Anemia in other chronic diseases classified elsewhere; E78.5 Hyperlipidemia, unspecified; F20.9 Schizophrenia, unspecified; M32.9 Systemic lupus erythematosus, unspecified; Z90.49 Acquired absence of other specified parts of digestive tract; Z86.718 Personal history of other venous thrombosis and embolism; Z88.6 Allergy status to analgesic agent; Z88.8 Allergy status to other drugs, medicaments and biological substances; Z79.4 Long term (current) use of insulin; Z79.899 Other long term (current) drug therapy; Z79.82 Long term (current) use of aspirin; Z79.01 Long term (current) use of anticoagulants; I48.91 Unspecified atrial fibrillation; G47.33 Obstructive sleep apnea (adult) (pediatric); E87.6 Hypokalemia; E88.09 Other disorders of plasma-protein metabolism, not elsewhere classified; E83.42 Hypomagnesemia; G47.10 Hypersomnia, unspecified; Z68.39 Body mass index [BMI] 39.0-39.9, adult; E66.9 Obesity, unspecified; N28.1 Cyst of kidney, acquired; Z88.4 Allergy status to anesthetic agent; Z79.624 Long term (current) use of inhibitors of nucleotide synthesis; T88 Other complications of surgical and medical care, not elsewhere classified
CPT/HCPCS: 31720; 36415; 36600; 70450-TC; 71045-TC; 76700-TC; 76770-TC; 80048-TC; 80053-TC; 80076-TC; 80197; 80202-TC; 81001; 82140-TC; 82533; 82803-TC; 82962-TC; 83605-TC; 83880; 84443-TC; 84484-TC; 85025-TC; 85378-TC; 86706; 87040-TC; 87081-TC; 87086-TC; 87340; 87899; 90935-TC; 93307-TC; 94002-TC; 94003-TC; 94799-TC; 99082-TC; C9113; C9803; G0378; J0282; J0330; J0692; J1720; J1815; J1953; J2060; J2248; J2250; J2370; J3010; J3370; J3490; J7030; J7040; J7050; J7060; J7507; J7517